=== PATIENT | male | born 1985 | race Caucasian/White ===

== ENCOUNTER → 2020-08-23 11:14 | Outpatient (BNVA) | payer OTHER, SELFPAY | PROVIDERS: PCP Internal Medicine; Visit Provider Surgery | DX: L02.811 Cutaneous abscess of head [any part, except face] (principal) | CPT/HCPCS: 10060; 99203 ==

== ENCOUNTER 2021-12-21 15:04 | Emergency (ER) | payer OTHER, SELFPAY ==
--- NOTE | ~2021-12-21 | XR_ITS ---
EXAMINATION: XR LUMBOSACRAL SPINE CLINICAL INFORMATION: Pain status post fall. COMPARISON: Radiographs of the lumbar spine dated from 10/03/2019. TECHNIQUE: Three views of the lumbosacral spine. FINDINGS: The vertebral bodies and posterior elements are normal. The disc spaces are preserved and the vertebral alignment is normal. The paraspinal soft tissues are normal. XR/XR lumbar spine 2-3V IMPRESSION: Unremarkable examination.
[2021-12-21 15:55] VITALS: PULSE 70; RESP 16; TEMP 36.6; O2SAT 100; BMI 26.5
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
[2021-12-21 17:09] VITALS: BP 124/57; PULSE 64; RESP 16; O2SAT 97
== END 2021-12-21 17:57 | disposition home or self-care (01) ==
PROVIDERS: Emergency Provider Emergency Medicine Emergency Medical Services; PCP Internal Medicine
DX: M54.50 Low back pain, unspecified (principal); Z79.899 Other long term (current) drug therapy
CPT/HCPCS: 72100; 99283; 99284

== ENCOUNTER 2023-11-26 08:02 | Outpatient (REF) | payer OTHER, SELFPAY ==
[2023-11-28 09:13] LABS: RPR Rapid Plasma Reagin NON-REACTIVE (NON-REACTIVE)
== END 2023-11-26 08:03 | disposition home or self-care (01) ==
LOC: HO.HHCL 08:02
PROVIDERS: Visit Provider Internal Medicine
DX: Z00.00 Encounter for general adult medical examination without abnormal findings (principal); R39.9 Unspecified symptoms and signs involving the genitourinary system
CPT/HCPCS: 0353U; 36415; 80048; 80061; 80076; 81003; 83036; 84153; 85025; 86592; 86803; 87086; 87389

== ENCOUNTER 2024-03-16 02:41 | Emergency (ER) | payer OTHER, SELFPAY ==
[2024-03-16 02:50] VITALS: BP 131/87; PULSE 98; RESP 16; TEMP 37.4; O2SAT 100; BMI 24.9
--- NOTE | 2024-03-16 03:14 | ED.GENADULT ---
HPI - General Adult General Chief complaint: General Medical Stated complaint: needs stitches removed Time Seen by Provider: 03/16/24 03:06 Source: patient Mode of arrival: ambulatory Limitations: no limitations History of Present Illness HPI narrative: Patient comes to the emergency room grossing stitches removal. Ten days ago he was in at [facility] for a laceration in the pinky finger on the left hand. Patient states that it has been healing well. No other complaints. Related Data Home Medications ?Medication ?Instructions ?Recorded ?Confirmed acetaminophen 500 mg tablet 500 mg PO Q6H PRN 08/23/20 (Tylenol Extra Strength) albuterol sulfate 90 mcg/actuation 1 puff inhalation QID 08/23/20 aerosol inhaler albuterol sulfate 90 mcg/actuation 1 puff inhalation QID 08/23/20 aerosol inhaler (ProAir HFA) buprenorphine 8 mg-naloxone 2 mg 2 film buccal DAILY 08/23/20 sublingual film (Suboxone) cyclobenzaprine 10 mg tablet 10 mg PO TID 08/23/20 diphenhydramine HCl 25 mg tablet 25 mg PO Q6H PRN 08/23/20 (Benadryl Allergy) docusate sodium 100 mg capsule 100 mg PO BID 08/23/20 (Colace) doxycycline hyclate 100 mg capsule 100 mg PO BID 08/23/20 fluticasone propionate 110 1 puff inhalation Q12H 08/23/20 mcg/actuation HFA aerosol inhaler (Flovent HFA) ibuprofen 800 mg tablet 800 mg PO TID 08/23/20 lidocaine 5 % topical patch 1 patch topical DAILY 08/23/20 loratadine 10 mg tablet (Allergy 10 mg PO DAILY 08/23/20 Relief (loratadine)) mirtazapine 15 mg tablet 15 mg PO BEDTIME 08/23/20 nabumetone 500 mg tablet 500 mg PO BID 08/23/20 nicotine (polacrilex) 4 mg gum 4 mg buccal Q1H 08/23/20 varenicline 0.5 mg (11)-1 mg (42) See Rx Instructions PO PER PKG DIR 08/23/20 tablets in a dose pack (Chantix Starting Month Box) amitriptyline 25 mg tablet 25 mg PO BEDTIME 10/02/22 cholecalciferol (vitamin D3) 50 50 mcg PO DAILY 10/02/22 mcg (2,000 unit) capsule (Vitamin D3) sertraline 100 mg tablet 100 mg PO DAILY 10/02/22 Previous Rx's ?Medication ?Instructions ?Recorded cyclobenzaprine 10 mg tablet 10 mg PO TID PRN muscle spasm #10 12/21/21 tabs ibuprofen 600 mg tablet 600 mg PO Q8H PRN pain #20 tabs 12/21/21 lidocaine 5 % topical patch 1 patch topical DAILY #15 ea 12/21/21 Allergies Allergy/AdvReac Type Severity Reaction Status Date / Time No Known Allergies Allergy Verified 03/16/24 02:51 Review of Systems Review of Systems: Constitutional : No Weight loss, No Fever, No Chills, No Night Sweats, No Fatigue, No Malaise ENT/Mouth : No Hearing loss, No Ear Pain, No Nasal Congestion, No Sinus Pain, No Hoarseness, No sore throat, No Rhinorrhea, No Swallowing Difficulty Eyes: No Eye Pain, No Swelling, No Redness, No Foreign Body, No Discharge, No Vision Changes Cardiovascular : No Chest Pain, No SOB, No Dyspnea on Exertion, No Orthopnea, No Edema, No Palpitations Respiratory : No Cough, No Sputum, No Wheezing, No Smoke Exposure, No Dyspnea Gastrointestinal : No Nausea, No Vomiting, No Diarrhea, No Constipation, No abdominal Pain, No Hematochezia, No Melena Genitourinary : no irregular bleeding, No Dysuria, No Urinary Frequency, No Hematuria, No Urinary Incontinence, No Urgency, No Flank Pain, No Urinary Flow Changes, No Hesitancy Musculoskeletal : No joint pain, No Myalgias, No Joint Swelling Skin : It stitches removed Neuro : No Weakness, No Numbness, No Paresthesias, No Loss of Consciousness, No Dizziness, No Headache Psych : No Anxiety/Panic, No Depression, No SI/HI/AH/VH, No Social Issues, Heme/Lymph: No Bruising, No Bleeding,No Lymphadenopathy Endocrine : No Polyuria, No Polydipsia, No Temperature Intolerance [facility] Past Medical History Surgical History History of removal of cyst Family History Family History Mother No problems noted. Father History of esophageal cancer Social History Social History Alcohol intake: never Do you have a plan to hurt others: No Plan Physical Exam ED Vital Signs: Vital Signs - 24 hr 03/16/24 02:50 Temperature 99.3 F Pulse Rate 98 Respiratory Rate 16 Blood Pressure 131/87 Pulse Oximetry 100 Oxygen Delivery Method Room Air BMI result Body Mass Index 24.9 Const Other: Appearance: Alert. Oriented X3. No acute distress. Eyes: Pupils equal, round and reactive to light. ENT: Pharynx normal. Neck: Normal inspection. Neck supple. No lymph nodes noted. No crepitus CVS: Normal heart rate and rhythm. Pulses normal. Normal S1 and S2 Respiratory: No respiratory distress. Breath sounds normal. No Wheezing. No rales Abdomen: Soft and nontender. No rigidity. No distention. Skin: Skin warm and dry. Normal skin color. Normal skin turgor. Well-healed incision in the palmar aspect of the left pinky, no signs of infection. Extremities: No lower extremity edema. No Lacerations. No Rash Neuro: Oriented X 3. No motor deficit. No sensory deficit. Moving all extremities. No slurred speech. CN 2 through 12 grossly intact Psych: calm, cooperative, normal affect Medical Decision Making Medical Decision Making MDM Narrative: All the suture material was removed. Discharge Plan Discharge Clinical Impression: Encounter for removal of sutures Patient Disposition: Home, Self-Care Instructions: Stitches Removal (ED) Additional Instructions: Please follow-up with your primary care physician tomorrow. If you have any worsening or new symptoms, please return to the emergency room or call 911 Prescriptions: No Action cyclobenzaprine 10 mg tablet 10 mg PO TID PRN (Reason: muscle spasm) Qty: 10 0RF ibuprofen 600 mg tablet 600 mg PO Q8H PRN (Reason: pain) Qty: 20 0RF lidocaine 5 % adhesive patch,medicated 1 patch topical DAILY Qty: 15 0RF Rx Instructions: leave on most painful area for up to 12 hrs mirtazapine 15 mg tablet 15 mg PO BEDTIME nicotine (polacrilex) 4 mg gum 4 mg buccal Q1H acetaminophen [Tylenol Extra Strength] 500 mg tablet 500 mg PO Q6H PRN lidocaine 5 % adhesive patch,medicated 1 patch topical DAILY Rx Instructions: leave on most painful area for up to 12 hrs albuterol sulfate 90 mcg/actuation HFA aerosol inhaler 1 puff inhalation QID albuterol sulfate [ProAir HFA] 90 mcg/actuation HFA aerosol inhaler 1 puff inhalation QID Chantix Starting Month Box 0.5 mg (11)- 1 mg (42) tablets,dose pack See Rx Instructions PO PER PKG DIR Rx Instructions: PO PER PKG DIR ibuprofen 800 mg tablet 800 mg PO TID diphenhydramine HCl [Benadryl Allergy] 25 mg tablet 25 mg PO Q6H PRN nabumetone 500 mg tablet 500 mg PO BID cyclobenzaprine 10 mg tablet 10 mg PO TID loratadine [Allergy Relief (loratadine)] 10 mg tablet 10 mg PO DAILY Flovent HFA 110 mcg/actuation HFA aerosol inhaler 1 puff inhalation Q12H docusate sodium [Colace] 100 mg capsule 100 mg PO BID buprenorphine-naloxone [Suboxone] 8-2 mg film 2 film buccal DAILY Rx Instructions: place 1 film on inside of (each) cheek doxycycline hyclate 100 mg capsule 100 mg PO BID amitriptyline 25 mg tablet 25 mg PO BEDTIME sertraline 100 mg tablet 100 mg PO DAILY cholecalciferol (vitamin D3) [Vitamin D3] 50 mcg (2,000 unit) capsule 50 mcg PO DAILY Print Language: Algerian
[2024-03-16 03:20] VITALS: BP 131/87; PULSE 98; RESP 16; TEMP 37.4; O2SAT 100
== END 2024-03-16 03:21 | disposition home or self-care (01) ==
LOC: HO.ED 03:19
PROVIDERS: Emergency Provider Emergency Medicine; PCP Internal Medicine
DX: S61.217D Laceration without foreign body of left little finger without damage to nail, subsequent encounter (principal); X58.XXXD Exposure to other specified factors, subsequent encounter
CPT/HCPCS: 99282; 99283

== ENCOUNTER 2025-04-11 13:29 | Emergency (ER) | payer MEDICARE, SELFPAY ==
--- NOTE | ~2025-04-11 | CT_ITS ---
CLINICAL HISTORY: perirectal abscess induration r o deeper tracking CT PELVIS WITH CONTRAST Comparison: None Findings: There is a wall enhancing thick-walled fluid collection in the right posterior perianal region with intergluteal extension. Suspected abscess measures 4.3 x 4.1 x 2.6 cm (Length x Height x Width). There is adjacent fat stranding and skin thickening. No deep or superficial gas locule. No foreign body. No pelvic free fluid or mesenteric edema. Multiple small reactive inguinal lymph nodes, right greater than left. No acute fracture or dislocation. IMPRESSION: Right inferior perirectal abscess measures 4.3 cm in greatest diameter. No significant extension into the ischioanal fossa or deep perineal pouch. This document has been electronically signed by: Maria Teresa Velasco DO on 04/11/2025 16:39:52
[2025-04-11 13:37] VITALS: BP 121/43; PULSE 99; RESP 16; TEMP 37.4; O2SAT 98; BMI 26.6
--- NOTE | 2025-04-11 13:37 | ED_ITS ---
HPI - General Adult General Chief complaint: Skin/Abscess/Foreign Body Stated complaint: cyst Time Seen by Provider: 04/11/25 14:27 Source: patient, RN notes reviewed and old records reviewed Mode of arrival: ambulatory History of Present Illness ED Provider: Nora Gtz PA-C HPI narrative: 39-year-old male with no significant past medical history presenting to the ED complaining of painful cyst to buttock area x1 week. Reports some drainage noted. Reports painful/difficulty having BMs. Denies fever, chills, nausea, vomiting, inability to have BM, difficulty urinating, abdominal pain Related Data Home Medications ?Medication ?Instructions ?Recorded ?Confirmed acetaminophen 500 mg tablet 500 mg PO Q6H PRN Mild Pain (Scale 08/23/20 04/11/25 (Tylenol Extra Strength) Score 1-4) albuterol sulfate 90 mcg/actuation 1 puff inhalation QID PRN 08/23/20 04/11/25 aerosol inhaler Respiratory Distress buprenorphine 8 mg-naloxone 2 mg 1 film sublingual TID 08/23/20 04/11/25 sublingual film (Suboxone) docusate sodium 100 mg capsule 100 mg PO BID PRN Constipation 08/23/20 04/11/25 (Colace) loratadine 10 mg tablet (Allergy 10 mg PO DAILY 08/23/20 Relief (loratadine)) mirtazapine 15 mg tablet 15 mg PO BEDTIME 08/23/20 nabumetone 500 mg tablet 500 mg PO BID 08/23/20 nicotine (polacrilex) 4 mg gum 4 mg buccal Q1H 08/23/20 varenicline tartrate 0.5 mg (11)-1 See Rx Instructions PO PER PKG DIR 08/23/20 mg (42) tablets in a dose pack (Chantix Starting Month Box) sertraline 100 mg tablet 100 mg PO DAILY 10/02/22 Previous Rx's ?Medication ?Instructions ?Recorded amoxicillin 875 mg-potassium 1 tab PO BID 7 days #14 tabs 04/11/25 clavulanate 125 mg tablet Allergies Allergy/AdvReac Type Severity Reaction Status Date / Time No Known Allergies Allergy Verified 04/11/25 13:38 Review of Systems 2 Review of Systems: Yes all other systems are reviewed and are negative Constitutional: Constitutional: Reports as per HPI [facility] Past Medical History Attestation statement: The following information was validated with the patient. Source: old records reviewed Surgical History History of removal of cyst Family History Family History Mother No problems noted. Father History of esophageal cancer Social History Social History Alcohol intake: never Smoked in Last 30 Days: Yes Use of substances other than those prescribed or required for medical reasons: No Advance Directives: No Advance Directives Information Provided: Yes Do you have a plan to hurt others: No Plan Physical Exam ED Vital Signs: Vital Signs - 24 hr 04/11/25 13:37 04/11/25 15:10 04/11/25 17:34 Temperature 99.4 F 99.9 F 98.2 F Pulse Rate 99 97 78 Respiratory Rate 16 16 Blood Pressure 121/43 L 128/92 H 136/79 Pulse Oximetry 98 98 99 Oxygen Delivery Method Room Air Room Air Room Air BMI result Body Mass Index 26.6 Const General: cooperative, healthy appearing and no acute distress Orientation/consciousness: patient oriented x3 Limitations: no limitations HENMT Head: Yes normal to inspection and Yes atraumatic Ears: hearing grossly normal bilaterally General nose exam: Normal external nose present Face and sinus: Yes normal facial exam Eyes General: appearance normal, both eyes and all related structures EOM: EOMs intact bilaterally Neck Neck: Yes normal visual inspection and Yes no meningeal signs Resp Effort & Inspection: normal respiratory effort and no respiratory distress Cardio Rate: regular rate GI Other: + large fluctuant and indurated abscess noted to right perianal region with surrounding erythema extending anteriorly. No appreciable scrotal involvement. Diffusely tender to palpation. No appreciable tracking into anal sphincter. Inspection: Yes normal to inspection Palpation (GI): Soft to palpation, nontender, no guarding and not rigid Neuro General: patient oriented x3, tone normal and no meningeal signs Cranial nerves: Yes CN's II-XII intact bilaterally Gait exam (Neuro): Normal gait present Extrem General: Yes normal to inspection Course Course Course Narrative: RME, this is a rapid medical exam performed by Qamar Traylor please refer to primary provider for complete H&P- 39 year old male presents for evaluation of a cyst to his right buttocks for about one week. No history of diabetes. - WBC count 11.2. ESR/ CRP elevated. Labs otherwise reassuring - lactic acid WNL CT pelvis w IV con IMPRESSION: Right inferior perirectal abscess measures 4.3 cm in greatest diameter. No significant extension into the ischioanal fossa or deep perineal pouch. >1648-- case discussed with general surgery, Dr. Burns who will review and evaluate patient in the ED >1733-- patient will be admitted to surgical service with plan OR I&D -1801-- patient now refusing admission. Will sign out AMA. Is A&O x3, competent to make his own decisions. Patient ate a bag of chips and thus cannot be taken for surgery until midnight (earliest), & is not agreeable to be admitted overnight for IV antibiotics and pain control. However patient is agreeable to return in the morning with plan to go to the OR. Will discharge with p.o. Augmentin. Medications Administered Discontinued Medications Generic Name Dose Route Start Last Admin Trade Name Freq PRN Reason Stop Dose Admin Sodium Chloride 1,000 mls @ 999 mls/hr 04/11/25 14:45 04/11/25 17:32 Ns IV 04/11/25 15:45 Infused .Q1H1M VINCE Infusion Piperacillin Sod/Tazobactam 100 mls @ 200 mls/hr 04/11/25 15:35 04/11/25 17:32 Sod 4.5 gm/ Sodium Chloride IV 04/11/25 16:04 Infused ONCE ONE Infusion Iohexol 85 ml 04/11/25 15:35 04/11/25 15:35 Iohexol 350 Mg/Ml 100 Ml Infus..Btl IV 04/11/25 15:36 85 ml ONCE ONE Administration Ketorolac Tromethamine 15 mg 04/11/25 15:39 04/11/25 15:47 Ketorolac Tromethamine 15 Mg/Ml Vial IVPUSH 04/11/25 15:40 15 mg ONCE ONE Administration Morphine Sulfate 4 mg 04/11/25 14:41 04/11/25 14:56 Morphine Sulfate 4 Mg/Ml Cartridge IVPUSH 04/11/25 14:42 4 mg ONCE ONE Administration Protocol Morphine Sulfate 2 mg 04/11/25 15:40 04/11/25 15:46 Morphine Sulfate 4 Mg/Ml Cartridge IVPUSH 04/11/25 15:41 2 mg ONCE ONE Administration Protocol Medical Decision Making Medical Decision Making MDM Narrative: 39-year-old male with no significant past medical history presenting to the ED complaining of painful cyst to buttock area x1 week. On exam vital signs stable, NAD, nontoxic appearing, physical exam as noted above. Concern for perianal abscess with deeper infection vs perianal involvement. Low suspicion for Eamon's gangrene at this time. Low suspicion for scrotal pathology including cellulitis/epididymitis orchitis or torsion. Low suspicion for intra- abdominal pathology or SBO/constipation Plan: Labs, UA, CT, IVF, pain control, surgical consult Please refer to course for remaining clinical decision making, interpretation of labs/imaging results, and discussions with consultants and/or family members. Differential Diagnosis Differential Diagnoses: The differential diagnosis associated with the presentation includes As above Admission/Observation Consideration of admission/observation: Escalation of care including admission/observation considered Lab Data [facility] Lab Attestation statement: I reviewed the patient's lab results. 04/11/25 14:49 04/11/25 14:49 Labs: Lab Results 04/11/25 04/11/25 Range/Units 14:49 15:33 WBC 11.2 H (4.8-10.8) X10*3/uL RBC 4.17 L (4.60-5.80) X10*6/uL Hgb 13.2 L (14.0-18.0) g/dl Hct 38.6 L (42.0-52.0) % MCV 92.6 (80.0-98.0) fL MCH 31.7 (27.0-33.0) pg MCHC 34.2 (31.0-36.0) g/dl RDW 12.8 (11.0-16.0) % Plt Count 298 (160-400) X10*3/uL MPV 10.5 (9.4-12.4) fL Immature Gran % (Auto) 0.4 (0.0-0.4) % Neut % (Auto) 76.2 H (45-73) % Lymph % (Auto) 14.9 L (20-40) % [place]hin % (Auto) 6.1 (2-11) % Eos % (Auto) 2.0 (0-4) % Baso % (Auto) 0.4 (0-2) % Lymph # (Auto) 1.7 (1.2-4.9) X10*3/uL [place]hin # (Auto) 0.7 (0.1-1.2) X10*3/uL Eos # (Auto) 0.2 (0.0-0.4) X10*3/uL Baso # (Auto) 0.1 (0.0-0.2) X10*3/uL Abs Immat Gran (auto) 0.05 H (0.00-0.03) X10*3/uL Absolute Neuts (auto) 8.5 H (2.0-8.3) x10*3/uL Absolute Nucleated RBC 0.000 (0.0-0.012) X10*3/uL Nucleated RBC % (auto) 0.0 (0.0-0.2) /100WBC ESR 62 H (0-15) MM/HR PT 11.0 (10.9-12.4) SEC INR 1.0 (0.9-1.1) Sodium 141 (135-145) mmol/L Potassium 4.5 (3.3-5.1) mmol/L Chloride 102 (96-108) mmol/L Carbon Dioxide 28 (22-29) mmol/L Anion Gap 16 (12-20) BUN 10 (9-16) mg/dL Creatinine 0.67 (0.5-1.4) mg/dL Estim Creat Clear Calc 119.1 Estimated GFR > 60 Random Glucose 113 (60-115) mg/dL Lactic Acid 1.8 (0.5-2.0) mmol/L Calcium 9.6 (8.4-10.2) mg/dL Magnesium 1.9 (1.6-2.6) mg/dL Total Bilirubin 0.2 (0.0-1.0) mg/dL Direct Bilirubin < 0.2 (0.0-0.5) mg/dL AST 16 (5-37) U/L ALT 10 (0-40) U/L Alkaline Phosphatase 71 (39-117) U/L C-Reactive Protein 6.80 H (< or = 0.50) mg/dL Total Protein 7.6 (6.5-8.0) g/dL Albumin 4.3 (3.5-5.0) g/dL Independent Interpretation I performed an independent interpretation of an: CT Scan Radiology Impression Discussion of test interpretation with radiology: I have reviewed the radiologist's reading. External Record Review External record reviewed: Inpatient record, Office record, Outpatient record, Prior outpatient labs, Prior outpatient radiology, Primary care record and Outside ED record Tests considered The following testing was considered but not selected: As above Prescription Management I considered prescription management with: Pain Medication and Antibiotic Chronic Conditions Patient?s care impacted by: Other Social Determinants Patient?s care significantly limited by Social Determinants of Health including: Other Social Determinant of Health Critical Care Time Critical Care Time Critical Care Time: Yes Total Critical Care Time: 40 Attestation: I have personally provided critical care time exclusive of time spent on separately billable procedures. Time includes review of lab data, radiology results, discussion with consultants, and monitoring for potential decompensation. Intervention performed as documented. Discharge Plan Discharge Clinical Impression: Perirectal abscess Patient Disposition: Left Against Medical Advice Instructions: Rectal Abscess (ED) Additional Instructions: Augmentin was sent to your pharmacy, please take a dose tonight and an additional dose in the morning You are signing out against medical advice. PLEASE RETURN TO THE ED IN THE MORNING AROUND 09:00 AND WE WILL PLAN FOR SURGICAL DRAINAGE OF YOUR ABSCESS if her pain persists/ worsens, becomes unbearable, you have fevers, chills, abdominal pain return to the ED DO NOT EAT OR DRINK ANYTHING AFTER MIDNIGHT TONIGHT Prescriptions: New amoxicillin-pot clavulanate 875-125 mg tablet 1 tab PO BID 7 Days Qty: 14 0RF No Action mirtazapine 15 mg tablet 15 mg PO BEDTIME nicotine (polacrilex) 4 mg gum 4 mg buccal Q1H acetaminophen [Tylenol Extra Strength] 500 mg tablet 500 mg PO Q6H PRN (Reason: Mild Pain (Scale Score 1-4)) lidocaine 5 % adhesive patch,medicated 1 patch topical DAILY Rx Instructions: leave on most painful area for up to 12 hrs albuterol sulfate 90 mcg/actuation HFA aerosol inhaler 1 puff inhalation QID PRN (Reason: Respiratory Distress) Chantix Starting Month Box 0.5 mg (11)- 1 mg (42) tablets,dose pack See Rx Instructions PO PER PKG DIR Rx Instructions: PO PER PKG DIR nabumetone 500 mg tablet 500 mg PO BID loratadine [Allergy Relief (loratadine)] 10 mg tablet 10 mg PO DAILY docusate sodium [Colace] 100 mg capsule 100 mg PO BID PRN (Reason: Constipation) buprenorphine-naloxone [Suboxone] 8-2 mg film 1 film sublingual TID sertraline 100 mg tablet 100 mg PO DAILY Ref[place]: [facility] [place] Group] - 1 day Jung Vazquez DO [Emergency Provider] - 1 day Stand Alone Forms: Against Medical Advice Print Language: Wolof
[2025-04-11] MEDS: Morphine Sulfate 4 MG/ML CARTRIDGE IVPUSH (14:56)
[2025-04-11] MEDS: 0.9 % Sodium Chloride 1,000 ML 999 ML IV (14:57)
[2025-04-11 14:59] LABS: MANUAL DIFF FLAG NO
[2025-04-11 15:03] LABS: Basophils Absolute Auto 0.1 X10*3/uL (0.0-0.2); Basophils Percent Auto 0.4 % (0-2); Eosinophils Absolute Auto 0.2 X10*3/uL (0.0-0.4); Hematocrit 38.6 % (42.0-52.0); Hemoglobin 13.2 g/dl (14.0-18.0); Imm Gran Abs Auto 0.05 X10*3/uL (0.00-0.03); Imm Gran Pct Auto 0.4 % (0.0-0.4); Lymphocytes Absolute Auto 1.7 X10*3/uL (1.2-4.9); Lymphocytes Percent Auto 14.9 % (20-40); Mean Corpuscular HGB Conc 34.2 g/dl (31.0-36.0); Mean Corpuscular Hemoglobin 31.7 pg (27.0-33.0); Mean Corpuscular Volume 92.6 fL (80.0-98.0); Mean Platelet Volume 10.5 fL (9.4-12.4); Monocytes Absolute Auto 0.7 X10*3/uL (0.1-1.2); Monocytes Percent Auto 6.1 % (2-11); Neutrophils Absolute Auto 8.5 x10*3/uL (2.0-8.3); Neutrophils Percent Auto 76.2 % (45-73); Platelet Count 298 X10*3/uL (160-400); Red Blood Count 4.17 X10*6/uL (4.60-5.80); Red Cell Distribution Width 12.8 % (11.0-16.0); White Blood Count 11.2 X10*3/uL (4.8-10.8)
[2025-04-11 15:10] VITALS: BP 128/92; PULSE 97; RESP 16; TEMP 37.7; O2SAT 98
[2025-04-11 15:14] LABS: Alanine Aminotransferase 10 U/L (0-40); Albumin Level 4.3 g/dL (3.5-5.0); Alkaline Phosphatase 71 U/L (39-117); Anion Gap 16 (12-20); Aspartate Amino Transferase 16 U/L (5-37); Bilirubin Direct < 0.2 mg/dL (0.0-0.5); Bilirubin Total 0.2 mg/dL (0.0-1.0); Blood Urea Nitrogen 10 mg/dL (9-16); Calcium 9.6 mg/dL (8.4-10.2); Carbon Dioxide 28 mmol/L (22-29); Chloride 102 mmol/L (96-108); Creatinine Clr Calc Pharmacy 119.1; Estimated Glomerular Filt Rate > 60; Glucose Random 113 mg/dL (60-115); Magnesium 1.9 mg/dL (1.6-2.6); Potassium 4.5 mmol/L (3.3-5.1); Sodium 141 mmol/L (135-145); Total Protein 7.6 g/dL (6.5-8.0)
--- OUTSIDE RECORDS SUMMARY | 2025-04-11 15:14 | XMS_ITS | Encounter Summary ---
Author Organization [employer] Address [address] [place] [address] Care Team Providers [facility] Manager Name Role Phone Marysol Patterson MD Primary Care Provide r Encounter Details Date Type Department Care Team (Latest Contact Info) Description 04/08/2025 Travel Social History Tobacco Use Types Packs/Day Years Used Date Smoking Tobacco: Every Day Cigarettes Smokeless Tobacco: Never Alcohol Use Standard Drinks/Week Comments Not Currently 0 (1 standard drink = 0.6 oz pur e alcohol) Depression Answer Date Recorded Patient Health Questionnaire-9 Score 6 11/07/2023 Patient Health Questionnaire-9 Score 6 11/07/2023 Last PHQ-9: Questionnaire Data Not on file 1 01/08/2023 Housing Stability Answer Date Recorded What is your housing situation today? I have p[place]co[place] warren 11/07/[address] you li ve. Do you have problems with any of the following? None of the above 11/07/2023 Food Insecurity Answer Date Recorded Within the past 12 months, y ou worried that your food would run out before you got money to buy more: Never True 11/07/2023 Within the past 12 months,th e food you bought just didn't last and you didn't have enough money to get more: Never True Transportation Answer Date Recorded In the past 12 months, has l ack of transportation kept you from medical appts, meetings, work or from getting things needed for daily living? No 11/07/2023 Utilities Answer Date Recorded In the past 12 months, has t he electric, gas, oil or water company threatened to shut off services in your home? No 11/07/2023 Depression Answer Date Recorded Patient Health Questionnaire-2 Score 3 11/07/2023 Internet Access Answer Date Recorded Internet Access Q1 Yes 10/30/2024 Internet Access Q2 Not on file 10/30/2024 Sex and Gender Information Value Date Recorded Sex Assigned at Male 09/18/2022 10:16 AM EDT Legal Sex Male 10:16 AM EDT Gender Identity Male 09/18/2022 10:16 AM EDT Sexual Orientation Straight 09/18/2022 10 :16 AM EDT documented as of this encounter Plan of Treatment Upcoming Encounters Date Type Department Care Team (Late st Contact Info) Description 05/05/2025 1:00 PM EDT Office Visit [facility] [address] [place] [id number] James Marte MD [address] [place] [id number] documented as of this encounter Visit Diagnoses Not on filedocumented in this encounter Additional Health Concerns Assessment Noted Time PHQ-9 Depression Total Score: 6 11/07/20 23 9:36 AM EST documented as of this encounter Care Teams Medical Center Manager Relationship Specialty Start Date End Date Marysol Patterson MD [address] [place] [id number] PCP - General Family Medicine 08/07/18 documented as of this encounter
[2025-04-11] MEDS: iohexoL 350 MG/ML 100 ML INFUS..BTL 85 ML IV (15:35)
[2025-04-11] MEDS: Morphine Sulfate 4 MG/ML CARTRIDGE 2 MG IVPUSH (15:46)
[2025-04-11] MEDS: Ketorolac Tromethamine 15 MG/ML VIAL IVPUSH (15:47)
[2025-04-11] MEDS: Piperacillin Sodium/Tazobactam 4.5 GM in 0.9 % Sodium Chloride 100 ML IV (15:47)
[2025-04-11 15:50] LABS: Erythrocyte Sedimentation Rate 62 MM/HR (0-15)
[2025-04-11 15:54] LABS: Lactic Acid 1.8 mmol/L (0.5-2.0)
[2025-04-11 17:34] VITALS: BP 136/79; PULSE 78; TEMP 36.8; O2SAT 99
--- NOTE | 2025-04-11 17:37 | PC.NURSE ---
This RN entered pt's room to reassess and noted that pt was eating a bag of potato chips; pt reminded that he needs to be NPO pending surgical consult; provider made aware
[2025-04-11 18:00] VITALS: BP 106/36; PULSE 63; RESP 13; TEMP 36.7; O2SAT 96
--- NOTE | 2025-04-11 18:11 | PHA.MEDREC ---
Pharmacy Consult ? Medication Reconciliation Pharmacy has completed the medication reconciliation.Med rec complete, spoke with patient and compared pharmacy claim history
[2025-04-11 18:23] VITALS: BP 106/36; PULSE 63; RESP 13; TEMP 36.7; O2SAT 96
== END 2025-04-11 18:25 | disposition left against medical advice (07) ==
PROVIDERS: Physician Assistant; Emergency Provider Emergency Medicine; PCP Internal Medicine
DX: K61.1 Rectal abscess (principal); Z79.899 Other long term (current) drug therapy
CPT/HCPCS: 36415; 72193; 80048; 80076; 83605; 83735; 85025; 85610; 85652; 86140; 87040; 87070; 87147; 87205; 99284; J1885; J2270; J2543; Q9967

== ENCOUNTER → 2025-04-11 14:41 | Outpatient (BNV) | payer SELFPAY | PROVIDERS: Emergency Provider Emergency Medicine; PCP Internal Medicine; Visit Provider Radiology Diagnostic Radiology | DX: K61.1 Rectal abscess (principal) | CPT/HCPCS: 72193 ==

== ENCOUNTER 2025-04-12 11:08 | Inpatient (IN) | payer MEDICARE, SELFPAY ==
[2025-04-12] VITALS (10 sets, daily range): BP systolic 107–135; BP diastolic 50–75; PULSE 64–85; RESP 16–18; TEMP 36.5–37.2; O2SAT 94–100; BMI 27.9; BMI 29.1
--- NOTE | 2025-04-12 11:42 | ED_ITS ---
HPI - General Adult General Chief complaint: Skin/Abscess/Foreign Body Stated complaint: cyst Time Seen by Provider: 04/12/25 12:04 Source: patient, RN notes reviewed and old records reviewed History of Present Illness ED Provider: Nora Gtz PA-C HPI narrative: 39-year-old male with past medical history right perirectal abscess diagnosed in our ED yesterday, presenting back to the ED today for OR I&D. Patient was seen in treated yesterday due to buttock pain x1 week, had CT confirming 4.3 cm perirectal abscess, general surgery evaluated patient in the ED and recommended OR drainage however patient is signed out AMA. Patient reports continued pain and some drainage. Has been NPO since midnight. Denies fever, abdominal pain, nausea/vomiting. Related Data Home Medications ?Medication ?Instructions ?Recorded ?Confirmed acetaminophen 500 mg tablet 500 mg PO Q6H PRN Mild Pain (Scale 08/23/20 04/12/25 (Tylenol Extra Strength) Score 1-4) albuterol sulfate 90 mcg/actuation 1 puff inhalation QID PRN 08/23/20 04/12/25 aerosol inhaler Respiratory Distress buprenorphine 8 mg-naloxone 2 mg 1 film sublingual TID 08/23/20 04/12/25 sublingual film (Suboxone) docusate sodium 100 mg capsule 100 mg PO BID PRN Constipation 08/23/20 04/12/25 (Colace) Previous Rx's ?Medication ?Instructions ?Recorded amoxicillin 875 mg-potassium 1 tab PO BID 7 days #14 tabs 04/11/25 clavulanate 125 mg tablet docusate sodium 100 mg capsule 100 mg PO BID #30 caps 04/14/25 (Colace) ibuprofen 600 mg tablet 600 mg PO Q8H PRN pain #30 tabs 04/14/25 oxycodone 5 mg tablet 5 mg PO Q4H PRN pain (scale score 04/14/25 7-10) #14 tabs Allergies Allergy/AdvReac Type Severity Reaction Status Date / Time No Known Allergies Allergy Verified 04/12/25 11:44 Review of Systems Review of Systems: Yes all other systems are reviewed and are negative Constitutional: Constitutional: Reports as per [facility] Past Medical History Attestation statement: The following information was validated with the patient. Source: old records reviewed Surgical History History of removal of cyst Family History Family History Mother No problems noted. Father History of esophageal cancer Social History Social History Household Members: Spouse Housing: Apartment Do you presently have visiting nurse or other home services: No Alcohol intake: never Patient Tobacco Use Status: Current everyday Tobacco user Cigarettes Per Day: 20 Smoked in Last 30 Days: Yes Patient Interested in Nicotine Replacement: Yes Use of substances other than those prescribed or required for medical reasons: Yes Substance Use Type: Marijuana Substance Use Frequency: Occasionally Currently Displaying Signs/Symptoms of Drug Intoxication Withdrawal: No Do you feel safe in your current relationship?: Yes Advance Directives: No Advance Directives Information Provided: Yes Do you have a plan to hurt others: No Plan service: No Physical Exam ED Vital Signs: Vital Signs - 24 hr 04/12/25 11:42 04/12/25 12:46 04/12/25 12:51 Temperature 97.7 F Pulse Rate 85 75 Respiratory Rate 16 16 Blood Pressure 120/56 L 109/50 L 107/52 L Pulse Oximetry 98 98 Oxygen Delivery Method Room Air Room Air 04/12/25 12:59 Temperature Pulse Rate 65 Respiratory Rate 18 Blood Pressure Pulse Oximetry 95 Oxygen Delivery Method BMI result Body Mass Index 27.9 Const General: cooperative, healthy appearing and no acute distress Orientation/consciousness: patient oriented x3 Limitations: no limitations HENMT Head: Yes normal to inspection and Yes atraumatic Ears: hearing grossly normal bilaterally General nose exam: Normal external nose present Face and sinus: Yes normal facial exam Eyes General: appearance normal, both eyes and all related structures EOM: EOMs intact bilaterally Neck Neck: Yes normal visual inspection and Yes no meningeal signs Resp Effort & Inspection: normal respiratory effort and no respiratory distress Cardio Rate: regular rate GI Inspection: Yes normal to inspection Palpation (GI): Soft to palpation and nontender Rectal Exam - Male: Yes deferred Neuro General: patient oriented x3, tone normal and no meningeal signs Cranial nerves: Yes CN's II-XII intact bilaterally Gait exam (Neuro): Normal gait present Extrem General: Yes normal to inspection Course Course Course Narrative: This is an RME performed by Alicia Gamboa CNP: Additional HPI, ROS, PE not included below will be deferred to primary provider. Patient is a 39-year-old male who presents emergency department for evaluation, reports that he has a cyst to the right buttock. States that he was seen here yesterday for this, was advised to return today as he would require surgery for this. Onset of cyst was approximately 4-5 days ago, states it is actively draining. Patient was offered admission to surgical service with plan for OR incision and drainage of perirectal abscess however he declined admission and left against medical advice, he was also offered admission to hospital for IV antibiotics and pain control with plan for OR, this morning, and he additionally declined. Plan: Serum labs Medications Administered Generic Name Dose Route Start Last Admin Trade Name Freq PRN Reason Stop Dose Admin Docusate Sodium 100 mg 04/12/25 15:42 04/13/25 15:21 Docusate Sodium 100 Mg Capsule PO 100 mg BID PRN Administration Constipation Sodium Chloride 1,000 mls @ 100 mls/hr 04/12/25 12:30 04/14/25 09:14 Ns IVCONT 100 mls/hr .Q10H VINCE Administration Piperacillin Sod/Tazobactam 50 mls @ 100 mls/hr 04/12/25 15:45 04/14/25 10:08 Sod 3.375 gm/ Sodium Chloride IV Infused Q6H VINCE Infusion Ketorolac Tromethamine 15 mg 04/12/25 21:00 04/14/25 08:34 Ketorolac Tromethamine 15 Mg/Ml Vial IVPUSH 15 mg Q6H VINCE Administration Lidocaine 1 patch 04/14/25 09:30 04/14/25 09:37 Lidocaine 4 % Patch Adh..Patch TRANSDERMA 1 patch DAILY VINCE Administration Protocol Lorazepam 1 mg 04/12/25 16:14 04/14/25 08:35 Lorazepam 1 Mg Tablet PO 1 mg Q6H PRN Administration Anxiety Morphine Sulfate 3 mg 04/12/25 18:07 04/14/25 09:40 Morphine Sulfate 4 Mg/Ml Cartridge IVPUSH 3 mg Q4H PRN Administration Pain, Severe (Pain Scale 7-10) Protocol Nicotine 21 mg 04/12/25 16:14 04/14/25 08:36 Nicotine 21 Mg Patch.Td24 TRANSDERMA 21 mg DAILY VINCE Administration Oxycodone HCl 10 mg 04/12/25 15:38 04/14/25 08:33 Oxycodone Hcl Immed Release 5 Mg Tablet PO 10 mg Q4H PRN Administration Pain, Moderate(Pain Scale 4-6) Sodium Chloride 3 ml 04/12/25 16:00 04/14/25 08:38 0.9 % Sodium Chloride Flush 3 Ml Syringe IVFLUSH 3 ml QSHIFT VINCE Administration Discontinued Medications Generic Name Dose Route Start Last Admin Trade Name Roland PRN Reason Stop Dose Admin Fentanyl 50 mcg 04/12/25 12:24 04/12/25 12:59 Fentanyl Citrate/Pf 100 Mcg/2 Ml Vial IVPUSH 04/12/25 12:25 50 mcg ONCE ONE Administration Protocol Ketorolac Tromethamine 15 mg 04/12/25 14:23 04/12/25 14:31 Ketorolac Tromethamine 15 Mg/Ml Vial IVPUSH 04/12/25 14:24 15 mg ONCE ONE Administration Morphine Sulfate 2 mg 04/12/25 14:23 04/12/25 14:31 Morphine Sulfate 2 Mg/Ml Cartridge IVPUSH 04/12/25 14:24 2 mg ONCE ONE Administration Protocol Medical Decision Making Medical Decision Making [facility] Narrative: 39-year-old male with past medical history right perirectal abscess diagnosed in our ED yesterday, presenting back to the ED today for OR I&D. On exam vital signs stable, NAD, nontoxic appearing, plan for OR I&D. General surgery, Dr. Burns notified of patient's ED arrival. No additional labs or imaging needed at this time. Plan: Maintenance IVF, pain control, surgery Please refer to course for remaining clinical decision making, interpretation of labs/imaging results, and discussions with consultants and/or family members. Differential Diagnosis Differential Diagnoses: The differential diagnosis associated with the presentation includes As above Admission/Observation Consideration of admission/observation: Escalation of care including adm ission/observation considered Consult Healthcare Provider Management of the patient was discussed with: Doctor Of Chiropractic (general surgery) Lab Data [facility] Lab Attestation statement: I reviewed the patient's lab results. Radiology Impression Discussion of test interpretation with radiology: I have reviewed the radiologist's reading. Independent Historian Clinical information obtained from an independent historian. History obtained from or confirmed by: Spouse External Record Review External record reviewed: Inpatient record, Office record, Outpatient record, Prior outpatient labs, Prior outpatient radiology, Primary care record and Outside ED record Tests considered The following testing was considered but not selected: As above Prescription Management I considered prescription management with: Pain Medication and Antibiotic Chronic Conditions Patient?s care impacted by: Other Social Determinants Patient?s care significantly limited by Social Determinants of Health including: Other Social Determinant of Health Discharge Plan Discharge Clinical Impression: Perirectal abscess Patient Disposition: Xfer Other Transfer Details: OR Interventions: Admission Worksheet (ED) Last Done: 04/12/25 15:09 Discharge Date/Time: 04/12/25 15:10
[2025-04-12] MEDS: 0.9 % Sodium Chloride 1,000 ML 100 ML IVCONT ×2 (12:45→16:33)
[2025-04-12] MEDS: fentaNYL citrate/PF 100 MCG/2 ML VIAL 50 MCG IVPUSH (12:59)
[2025-04-12] MEDS: Morphine Sulfate 2 MG/ML CARTRIDGE IVPUSH (14:31)
[2025-04-12] MEDS: Ketorolac Tromethamine 15 MG/ML VIAL IVPUSH ×2 (14:31→21:15)
--- NOTE | 2025-04-12 15:00 | PM.HPGS ---
History of Present Illness History of Present Illness Date of Service: 04/12/25 Chief complaint: cyst Narrative: Tc Man is a 39 year old male with a right perirectal abscess who came into the emergency room yesterday but left AMA since we can only do his case around midnight because he had eaten while he was NPO in the emergency room. Review of Systems Review of Systems: Yes all other systems are reviewed and are negative PMFSH Family History Family History Mother No problems noted. Father History of esophageal cancer Surgical History Surgical History History of removal of cyst Social History Social History Alcohol intake: never Smoked in Last 30 Days: Yes Use of substances other than those prescribed or required for medical reasons: Yes Substance Use Type: Marijuana Substance Use Frequency: Occasionally Advance Directives: No Advance Directives Information Provided: Yes Do you have a plan to hurt others: No Plan Meds Allergies Allergy/AdvReac Type Severity Reaction Status Date / Time No Known Allergies Allergy Verified 04/12/25 11:44 Active Medications: Current Medications Acetaminophen (Acetaminophen 325 Mg Tablet) 650 mg PO Q6H PRN PRN Reason: Pain, Mild 1-3,fever,headache Calcium Carbonate (Calcium Carbonate 750 Mg Tab.Chew) 750 mg PO Q4H PRN PRN Reason: Heartburn Sodium Chloride (Ns) 1,000 mls @ 100 mls/hr IVCONT .Q10H ON LICENSE OF [facility] Last Admin: 04/12/25 12:45 Dose: 100 mls/hr Magnesium Hydroxide (Milk Of Magnesia 30 Ml Oral.Susp) 30 ml PO DAILY PRN PRN Reason: Constipation Melatonin (Melatonin 3 Mg Tablet) 6 mg PO BEDTIME PRN PRN Reason: Insomnia Sodium Chloride (0.9 % Sodium Chloride Flush 3 Ml Syringe) 3 ml IVFLUSH QSHIFT ON LICENSE OF [facility] Home Medications ?Medication ?Instructions ?Recorded ?Confirmed ?Last Taken ?Type acetaminophen 500 mg tablet 500 mg PO Q6H PRN Mild Pain (Scale 08/23/20 04/11/25 Unknown History (Tylenol Extra Strength) Score 1-4) albuterol sulfate 90 mcg/actuation 1 puff inhalation QID PRN 08/23/20 04/11/25 Unknown History aerosol inhaler Respiratory Distress buprenorphine 8 mg-naloxone 2 mg 1 film sublingual TID 08/23/20 04/11/25 04/11/25 History sublingual film (Suboxone) docusate sodium 100 mg capsule 100 mg PO BID PRN Constipation 08/23/20 04/11/25 Unknown History (Colace) Physical Exam Vital Signs: Vital Signs: Last Vital Signs Temp 97.7 F 04/12/25 11:42 Pulse 65 04/12/25 12:59 Resp 18 04/12/25 12:59 BP 107/52 L 04/12/25 12:51 Pulse Ox 95 04/12/25 12:59 O2 Del Method Room Air 04/12/25 12:46 BMI result Body Mass Index 27.9 Resp: Effort & Inspection: normal respiratory effort Auscultation: clear to auscultation bilaterally Cardio: Palpation: normal PMI Rate: regular rate Rhythm: regular rhythm GI: Other: Abdomen benign Skin: Other: Large right-sided buttock perirectal abscess with significant induration erythema and tenderness small opening draining some purulent material Results Results CT scan - pelvis: report reviewed and image reviewed Assessment and Plan (1) Perirectal abscess: Status: Acute Plan 39-year-old male with perirectal abscess plan is do incision and drainage culture packing IV antibiotics. He understands and agrees with the above plan risks and benefits discussed with the patient Quality Stroke Does the patient have a stroke diagnosis?: No VTE Prior VTE?: No VTE Risk Level:: Surgical - low VTE Device Contraindication: N/A - Device Ordered VTE Drug Contraindication: Treatment Not Indicated Procedures Date of Service Date of Service: 04/12/25
--- NOTE | 2025-04-12 15:44 | P.OP_ITS ---
Operative Note Operative Note Date of Service: 04/12/25 Narrative: Preop diagnosis--right perirectal abscess Postop diagnosis--same Procedure--incision and drainage of right perirectal abscess Surgeon--Katy Anesthesia--general with an LMA Findings--right perirectal abscess with some purulent material but a lot of indurated soft fatty tissue deep. No communication with the anorectal opening Procedure--the patient was brought to the operative room and placed in the left lateral decubitus position with the buttocks taped upwards. The right buttock cheek near the perianal area was noted to be very erythematous and firm for about 8 x 12 cm. There was a small area that was already draining some purulent material. The area was prepped and draped in standard surgical fashion with Betadine. Scalpel was used to open up the area that was already draining and purulent material rushed out. This area was cultured and sent off for microbiology. Then using the cautery an area here was opened up and eventually the skin and soft tissue removed to make more of an elliptical opening to allow for free drainage of the purulent material and to be able to palpate the indurated tissue that was deep. A snap was placed into this deeper tissue and spread in order to dissect through it but there was no further purulent material retrieved. A 2nd area that felt little fluctuant closer to the anterior perineum was opened up with a scalpel and cautery and once again no purulent mat erial was noted here but the tissue was indurated. The area was irrigated hemostasis was achieved with a little cautery. Quarter-inch packing gauze was placed into both wounds and dry gauze and mesh panties were used to keep the dressing in place. At the end of the case all sponge instrument needle counts were correct. Estimated blood loss was about 15 cc. Specimens sent was the cultures for the perirectal abscess. Rectal exam of the end did not reveal any communication between the abscess and the anorectal mucosa. Patient was sent to the recovery room stable
--- NOTE | 2025-04-12 15:46 | PHA.MEDREC ---
Pharmacy Consult ? Medication Reconciliation Pharmacy has completed the medication reconciliation. Med rec done yesterday 04/11.
--- NOTE | 2025-04-12 15:50 | P.CONAN_ITS ---
[facility] Active Problems Active Problems: All Active Problems Perirectal abscess (Acute) Abscess, postauricular (Acute) Smoker in home (Acute) Past Medical History Functional capacity: independent ambulation Family History Family History Mother No problems noted. Father History of esophageal cancer Family history of problems with anesthesia: No Surgical History Surgical History History of removal of cyst History of Problems with Anesthesia: No Social History Social History Alcohol intake: never Smoked in Last 30 Days: Yes Use of substances other than those prescribed or required for medical reasons: Yes Substance Use Type: Marijuana Substance Use Frequency: Occasionally Advance Directives: No Advance Directives Information Provided: Yes Do you have a plan to hurt others: No Plan Meds Allergies Allergy/AdvReac Type Severity Reaction Status Date / Time No Known Allergies Allergy Verified 04/12/25 11:44 Active Medications: Current Medications Acetaminophen (Acetaminophen 325 Mg Tablet) 650 mg PO Q6H PRN PRN Reason: Pain, Mild 1-3,fever,headache Albuterol Sulfate (Albuterol Sulfate 90 Mcg 8 Gm Inhaler) 1 puff INHALE RQ6H PRN PRN Reason: Shortness of Breath Calcium Carbonate (Calcium Carbonate 750 Mg Tab.Chew) 750 mg PO Q4H PRN PRN Reason: Heartburn Docusate Sodium (Docusate Sodium 100 Mg Capsule) 100 mg PO BID PRN PRN Reason: Constipation Fentanyl (Fentanyl Citrate/Pf 100 Mcg/2 Ml Vial) 50 mcg IVPUSH Q5M PRN PRN Reason: Pain, Moderate to Severe (Pain Scale 4-10) Stop: 04/12/25 21:44 Fentanyl (Fentanyl Citrate/Pf 100 Mcg/2 Ml Vial) 50 mcg IVPUSH Q5M PRN PRN Reason: Pain, Moderate to Severe (Pain Scale 4-10) Stop: 04/12/25 21:48 Sodium Chloride (Ns) 1,000 mls @ 100 mls/hr IVCONT .Q10H VINCE Last Admin: 04/12/25 12:45 Dose: 100 mls/hr Piperacillin Sod/Tazobactam (Sod 3.375 gm/ Sodium Chloride) 50 mls @ 100 mls/hr IV Q6H [facility] Ketorolac Tromethamine (Ketorolac Tromethamine 15 Mg/Ml Vial) 15 mg IVPUSH Q6H PRN PRN Reason: Pain, Severe (Pain Scale 7-10) Magnesium Hydroxide (Milk Of Magnesia 30 Ml Oral.Susp) 30 ml PO DAILY PRN PRN Reason: Constipation Melatonin (Melatonin 3 Mg Tablet) 6 mg PO BEDTIME PRN PRN Reason: Insomnia Naloxone HCl (Naloxone Hcl 0.4 Mg/Ml Vial) 0.04 mg IVPUSH Q5M PRN PRN Reason: Excessive sedation or RR < 8 Naloxone HCl (Naloxone Hcl 0.4 Mg/Ml Vial) 0.04 mg IVPUSH Q5M PRN PRN Reason: Excessive sedation or RR < 8 Ondansetron HCl (Ondansetron Hcl 4 Mg/2 Ml Vial) 4 mg IVPUSH ONCE PRN PRN Reason: Nausea and Vomiting Stop: 04/12/25 21:45 Ondansetron HCl (Ondansetron Hcl 4 Mg/2 Ml Vial) 4 mg IVPUSH ONCE PRN PRN Reason: Nausea and Vomiting Stop: 04/12/25 21:48 Oxycodone HCl (Oxycodone Hcl Immed Release 5 Mg Tablet) 5 mg PO Q4H PRN PRN Reason: Pain, Mild 1-3,fever,headache Oxycodone HCl (Oxycodone Hcl Immed Release 5 Mg Tablet) 10 mg PO Q4H PRN PRN Reason: Pain, Moderate(Pain Scale 4-6) Sodium Chloride (0.9 % Sodium Chloride Flush 3 Ml Syringe) 3 ml IVFLUSH QSHIFT [facility] Home Medications ?Medication ?Instructions ?Recorded ?Confirmed ?Last Taken ?Type acetaminophen 500 mg tablet 500 mg PO Q6H PRN Mild Pain (Scale 08/23/20 04/12/25 Unknown History (Tylenol Extra Strength) Score 1-4) albuterol sulfate 90 mcg/actuation 1 puff inhalation QID PRN 08/23/20 04/12/25 Unknown History aerosol inhaler Respiratory Distress buprenorphine 8 mg-naloxone 2 mg 1 film sublingual TID 08/23/20 04/12/25 04/11/25 History sublingual film (Suboxone) docusate sodium 100 mg capsule 100 mg PO BID PRN Constipation 08/23/20 04/12/25 Unknown History (Colace) Exam Height,Weight and Vital Signs: Height 5 ft 3 in Weight 71.4 kg Last Vital Signs Temp 97.7 F 04/12/25 11:42 Pulse 65 04/12/25 12:59 Resp 18 04/12/25 12:59 BP 107/52 L 04/12/25 12:51 Pulse Ox 95 04/12/25 12:59 O2 Del Method Room Air 04/12/25 12:46 Airway Mallampati Class: II TM Dist: >3cm Neck ROM: Full Heart: RRR Lungs: CTA Assessment and Plan Assessment Anesthesia Assessment: Anesthesia Plan Discussed and Smoking Cess. Discussed Final Anesthetic Review Family History of Problems with Anesthesia: No History of Problems with Anesthesia: No NPO: Yes ASA Class: II and Emergency Final Preanesthetic Review: Meds/Allgs Chart Reviewed, Consent Obtained/Reviewed and Anes Risks/Benef Reviewed Patient Risk: Low Procedure Risk: Low Anesthetic Plan Anesthetic Plan: GA Disposition: Standard PACU
[2025-04-12] MEDS: Nicotine 21 MG PATCH.TD24 TRANSDERMA (16:33)
[2025-04-12] MEDS: Piperacillin Sodium/Tazobactam 3.375 GM in 0.9 % Sodium Chloride 50 ML IV ×2 (16:33→21:15)
--- NOTE | 2025-04-12 16:47 | PC.NURSE ---
came to the nurse station and stated patient may leave AMA.
[2025-04-12] MEDS: oxyCODONE HCl Immed Release 5 MG TABLET 10 MG PO (18:04)
[2025-04-13] MEDS: 0.9 % Sodium Chloride 1,000 ML 100 ML IVCONT ×3 (01:34→21:46)
[2025-04-13] MEDS: Ketorolac Tromethamine 15 MG/ML VIAL IVPUSH ×4 (03:24→21:47)
[2025-04-13] MEDS: Piperacillin Sodium/Tazobactam 3.375 GM in 0.9 % Sodium Chloride 50 ML IV ×4 (03:24→21:49)
[2025-04-13 03:28] VITALS: BP 116/55; PULSE 60; RESP 18; TEMP 36
[2025-04-13] MEDS: oxyCODONE HCl Immed Release 5 MG TABLET 10 MG PO ×5 (03:29→22:23)
[2025-04-13 06:52] VITALS: BP 119/68; PULSE 58; RESP 15; TEMP 36.4; O2SAT 98
[2025-04-13] MEDS: Nicotine 21 MG PATCH.TD24 TRANSDERMA (07:14)
--- NOTE | 2025-04-13 09:53 | P.PNGS_ITS ---
Subjective Subjective Date of Service: 04/13/25 Interval history: Underwent I and D of a right perirectal abscess yesterday in the OR with Dr. Burns Currently complains of pain although better No fever Physical Exam Vital Signs: Vital Signs: Last Vital Signs Temp 97.6 F 04/13/25 06:52 Pulse 58 04/13/25 06:52 Resp 15 04/13/25 06:52 BP 119/68 04/13/25 06:52 Pulse Ox 98 04/13/25 06:52 O2 Del Method Room Air 04/13/25 06:52 O2 Flow Rate 97 04/13/25 03:28 BMI result Body Mass Index 29.1 Const: General: comfortable and no acute distress Resp: Effort & Inspection: normal respiratory effort Cardio: Rate: regular rate GI: Other: Right perirectal area I&D site, packing in place, some induration but no residual fluctuance Palpation (GI): Soft to palpation, not firm and nontender Objective Data Active Medications Acetaminophen (Acetaminophen 325 Mg Tablet) 650 mg PO Q6H PRN PRN Reason: Pain, Mild 1-3,fever,headache Albuterol Sulfate (Albuterol Sulfate 90 Mcg 8 Gm Inhaler) 1 puff INHALE RQ6H PRN PRN Reason: Shortness of Breath Calcium Carbonate (Calcium Carbonate 750 Mg Tab.Chew) 750 mg PO Q4H PRN PRN Reason: Heartburn Docusate Sodium (Docusate Sodium 100 Mg Capsule) 100 mg PO BID PRN PRN Reason: Constipation Sodium Chloride (Ns) 1,000 mls @ 100 mls/hr IVCONT .Q10H [facility] Last Admin: 04/13/25 01:34 Dose: 100 mls/hr Documented By: WALTER Piperacillin Sod/Tazobactam (Sod 3.375 gm/ Sodium Chloride) 50 mls @ 100 mls/hr IV Q6H [facility] Last Infusion: 04/13/25 04:02 Dose: Infused Documented By: WALTER Ketorolac Tromethamine (Ketorolac Tromethamine 15 Mg/Ml Vial) 15 mg IVPUSH Q6H [facility] Last Admin: 04/13/25 07:14 Dose: 15 mg Documented By: FRITZ Lorazepam (Lorazepam 1 Mg Tablet) 1 mg PO Q6H PRN PRN Reason: Anxiety Magnesium Hydroxide (Milk Of Magnesia 30 Ml Oral.Susp) 30 ml PO DAILY PRN PRN Reason: Constipation Melatonin (Melatonin 3 Mg Tablet) 6 mg PO BEDTIME PRN PRN Reason: Insomnia Morphine Sulfate (Morphine Sulfate 4 Mg/Ml Cartridge) 3 mg IVPUSH Q4H PRN; Protocol PRN Reason: Pain, Severe (Pain Scale 7-10) Naloxone HCl (Naloxone Hcl 0.4 Mg/Ml Vial) 0.04 mg IVPUSH Q5M PRN PRN Reason: Excessive sedation or RR < 8 Naloxone HCl (Naloxone Hcl 0.4 Mg/Ml Vial) 0.04 mg IVPUSH Q5M PRN PRN Reason: Excessive sedation or RR < 8 Nicotine (Nicotine 21 Mg Patch.Td24) 21 mg TRANSDERMA DAILY [facility] Last Admin: 04/13/25 07:14 Dose: 21 mg Documented By: FRITZ Oxycodone HCl (Oxycodone Hcl Immed Release 5 Mg Tablet) 5 mg PO Q4H PRN PRN Reason: Pain, Mild 1-3,fever,headache Oxycodone HCl (Oxycodone Hcl Immed Release 5 Mg Tablet) 10 mg PO Q4H PRN PRN Reason: Pain, Moderate(Pain Scale 4-6) Last Admin: 04/13/25 07:14 Dose: 10 mg Documented By: FRITZ Sodium Chloride (0.9 % Sodium Chloride Flush 3 Ml Syringe) [address] [facility] Last Admin: 04/13/25 08:02 Dose: Not Given Documented By: FRITZ Non-Admin Reason: IV Running Microbiology Microbiology Results: Microbiology 04/12/25 15:37 Gram Stain - Final Abscess Rectal Routine Culture - Preliminary No growth to date. Procedures Date of Service Date of Service: 04/13/25 Progress Note: A&P Assessment and plan (1) Perirectal abscess: Status: Acute Assessment and Plan: I&D done by Dr. Burns I pulled out the packing and a little bit I changed his dressings On diet Continue IV antibiotics Pain control Time Spent With Patient Time: Total time managing care of this patient today ____ minutes. Quality Stroke Does the patient have a stroke diagnosis?: No VTE Prior VTE?: No VTE Risk Level:: Surgical - low VTE Device Contraindication: N/A - Device Ordered VTE Drug Contraindication: Treatment Not Indicated
[2025-04-13] MEDS: Morphine Sulfate 4 MG/ML CARTRIDGE 3 MG IVPUSH (10:06)
--- NOTE | 2025-04-13 12:50 | MHC.CM.PN ---
CM MET WITH PT AND , PT IS INDEPENDENT AT BASELINE AND USES NO DME HE DECLINES TO COMPLETE A HCP PCP: VONNIE DAMIAN IMM DELIVERED PT AGREEABLE TO [facility] IF INDICATED AT DC, REFERRAL MADE WILL TRANSPORT
[2025-04-13] MEDS: LORazepam 1 MG TABLET PO (14:06)
[2025-04-13 15:09] VITALS: BP 121/56; PULSE 57; RESP 18; TEMP 36.9; O2SAT 100
[2025-04-13] MEDS: Docusate Sodium 100 MG CAPSULE PO (15:21)
[2025-04-13 19:22] VITALS: BP 123/58; PULSE 59; RESP 18; TEMP 36.6; O2SAT 98
[2025-04-13] MEDS: 0.9 % Sodium Chloride Flush 3 ML SYRINGE IVFLUSH (21:47)
[2025-04-14] MEDS: Ketorolac Tromethamine 15 MG/ML VIAL IVPUSH ×2 (03:26→08:34)
[2025-04-14] MEDS: Piperacillin Sodium/Tazobactam 3.375 GM in 0.9 % Sodium Chloride 50 ML IV ×2 (03:27→09:37)
[2025-04-14 04:00] VITALS: BP 122/58; PULSE 52; RESP 16; TEMP 36.6; O2SAT 99
[2025-04-14 07:58] VITALS: BP 111/57; PULSE 58; RESP 18; TEMP 36.1; O2SAT 100
--- NOTE | 2025-04-14 08:13 | PM.DS ---
DS: Providers Provider Date of Service: 04/14/25 Date of admission: 04/12/25 15:12 Date of discharge: 04/14/25 Primary care physician: Marysol Michelle MD Attending physician on admission: Dalila Burns Attending physician on discharge: Jonah Figueroa DS: Diagnosis Discharge Diagnosis (1) Perirectal abscess: Status: Acute DS: Summary Hospital Course Hospital Course: HPI AT ADMISSION: Tc Man is a 39 year old male with a right perirectal abscess who came into the emergency room yesterday but left AMA since we can only do his case around midnight because he had eaten while he was NPO in the emergency room. HOSPITAL COURSE: He was admitted to the surgical service for further treatment of the perirectal abscess. He was started on IV zosyn, IVF, kept NPO. On 04/12/25, he underwent incision and drainage of right perirectal abscess by Dr. Burns without immediate complication. He tolerated the procedure well. He was found to have a right perirectal abscess with some purulent material but a lot of indurated soft fatty tissue deep without communication with the anorectal opening. He had an uncomplicated recovery course. He remained inpatient 2 days following for IV abx. His pain improved and surrounding cellulitic changes resolved. His packing was removed. He was tolerating a solid diet, had good pain control and felt ready for discharge. His abscess culture grew Strep agalactiae (Grp B). He was discharged to home on 04/14/25 in stable condition and on a course of oral Augmentin. He is to follow up in the office in 1-2 weeks for a wound check. He was instructed on local daily wound care with dry dressing to I&D site and sitz baths 2-3 times a day. Status at Discharge Functional status at discharge: independent ambulation Overall status at discharge: patient is progressing back to baseline Time Attestation Discharge Coordination Time (in mins): 25 Quality: Safe Use of Opioids Does Pt have an Active Cancer Diagnosis on the Problem List?: No Quality: Stroke Does the patient have a stroke diagnosis?: No Physical Exam Vital Signs: Vital Signs: Last Vital Signs Temp 97.0 F 04/14/25 07:58 Pulse 58 04/14/25 07:58 Resp 18 04/14/25 07:58 BP 111/57 L 05/27/25 07:58 Pulse Ox 100 04/14/25 07:58 O2 Del Method Room Air 04/14/25 07:58 O2 Flow Rate 97 04/13/25 03:28 BMI result Body Mass Index 29.1 Const: General: comfortable, no acute distress and alert Orientation/consciousness: patient oriented x3 Skin: Other: right perirectal I&D site open and draining, packing removed, no residual induration or erythema Neuro: General: patient oriented x3 DS: Data Data Completed and Pending Labs on day of discharge: Preliminary micro results at discharge 04/12/25 15:37 Routine Culture - Preliminary Abscess Rectal Culture in progress. Discharge Plan Discharge Anticipated Discharge Date/Time: 04/14/25 09:38 Patient Disposition: Home, Self-Care Discharge Diagnosis: perirectal abscess, right Referrals: Marysol Patterson MD [Primary Care Provider] - 1 Week Jonah Figueroa MD [Physician] - 2 Weeks Discharge Medications: New docusate sodium [Colace] 100 mg capsule 100 mg PO BID Qty: 30 0RF oxycodone 5 mg tablet 5 mg PO Q4H PRN (Reason: pain (scale score 7-10)) Qty: 14 0RF Rx Instructions: Partial Fill upon patient request. ibuprofen 600 mg tablet 600 mg PO Q8H PRN (Reason: pain) Qty: 30 0RF Continued amoxicillin-pot clavulanate 875-125 mg tablet 1 tab PO BID 7 Days Qty: 14 0RF acetaminophen [Tylenol Extra Strength] 500 mg tablet 500 mg PO Q6H PRN (Reason: Mild Pain (Scale Score 1-4)) albuterol sulfate 90 mcg/actuation HFA aerosol inhaler 1 puff inhalation QID PRN (Reason: Respiratory Distress) docusate sodium [Colace] 100 mg capsule 100 mg PO BID PRN (Reason: Constipation) buprenorphine-naloxone [Suboxone] 8-2 mg film 1 film sublingual TID Discharge Orders: Discharge Order (Routine); Ordered 04/14/25 Ordered By: Luna Velez Diet: Advance to usual diet Activity on Discharge: As tolerated Stand Alone Forms: Patient Portal Discharge page, Work/School Release Print Language: Mongolian Activity Restrictions/Additional Instructions: Dry dressing to I&D site ; change daily and as needed. Complete your Augmentin (antibiotic) course. Hot sitz baths three times a day and after bowel movements. Massage area of the abscess 4 times a day. Stool softener twice a day for constipation. Follow up in office in 2 weeks. ([phone]) Call Your Doctor Or Return to ED If: ? ? -Your temperature exceeds 101.5? F? ? ? -You experience excessive pain or swelling ? ? -You have an unexpected reaction to medication ? ? -You experience continued vomiting/nausea Care Plan Goals: Return to baseline health and resume normal activities. Wound closure. Health Concerns: Perirectal abscess Plan of Treatment: s/p I&D of right perirectal abscess IV transitioned to oral antibiotics pain control f/u in office for wound eval Assessment: Improved Discharge Date/Time: 04/14/25 12:21
[2025-04-14] MEDS: oxyCODONE HCl Immed Release 5 MG TABLET 10 MG PO (08:33)
[2025-04-14] MEDS: LORazepam 1 MG TABLET PO (08:35)
[2025-04-14] MEDS: Nicotine 21 MG PATCH.TD24 TRANSDERMA (08:36)
[2025-04-14] MEDS: 0.9 % Sodium Chloride Flush 3 ML SYRINGE IVFLUSH (08:38)
--- NOTE | 2025-04-14 08:45 | PC.NURSE ---
patient is stating he would like to go home today,unsure what procedure is planned for him today,Dr. Figueroa notified
[2025-04-14] MEDS: 0.9 % Sodium Chloride 1,000 ML 100 ML IVCONT (09:14)
[2025-04-14] MEDS: Lidocaine 4 % Patch ADH..PATCH 1 PATCH TRANSDERMA (09:37)
[2025-04-14] MEDS: Morphine Sulfate 4 MG/ML CARTRIDGE 3 MG IVPUSH (09:40)
--- NOTE | 2025-04-14 09:40 | PM.PNGS ---
Subjective Subjective Date of Service: 04/14/25 <Luna Velez PA-C - Last Filed: 04/14/25 09:55> 04/14/25 <Jonah Figueroa MD - Last Filed: 04/14/25 09:55> Interval history: Feels improved. Denies significant pain, well controlled . Passing flatus no BM. OOB and ambulating. Wants to go home. <Luna Velez PA-C - Last Filed: 04/14/25 09:55> Physical Exam Vital Signs: Vital Signs: Last Vital Signs Temp 97.0 F 04/14/25 07:58 Pulse 58 04/14/25 07:58 Resp 18 04/14/25 07:58 BP 111/57 L 04/14/25 07:58 Pulse Ox 100 04/14/25 07:58 O2 Del Method Room Air 04/14/25 07:58 O2 Flow Rate 97 04/13/25 03:28 BMI result Body Mass Index 29.1 <Luna Velez PA-C - Last Filed: 04/14/25 09:55> Const: General: comfortable, no acute distress and alert <Luna Velez PA-C - Last Filed: 04/14/25 09:55> Orientation/consciousness: patient oriented x3 <STELLA Lugo Last Filed: 04/14/25 09:55> Resp: Effort & Inspection: normal respiratory effort <Luna Velez PA-C - Last Filed: 04/14/25 09:55> Skin: Other: right perirectal abscess- area soft, no induration or edema <Luna Velez PA-C - Last Filed: 04/14/25 09:55> Neuro: General: patient oriented x3 and moves all extremities <STELLA Lugo Last Filed: 04/14/25 09:55> Objective Data Active Medications Acetaminophen (Acetaminophen 325 Mg Tablet) 650 mg PO Q6H PRN PRN Reason: Pain, Mild 1-3,fever,headache Albuterol Sulfate (Albuterol Sulfate 90 Mcg 8 Gm Inhaler) 1 puff INHALE RQ6H PRN PRN Reason: Shortness of Breath Calcium Carbonate (Calcium Carbonate 750 Mg Tab.Chew) 750 mg PO Q4H PRN PRN Reason: Heartburn Docusate Sodium (Docusate Sodium 100 Mg Capsule) 100 mg PO BID PRN PRN Reason: Constipation Last Admin: 04/13/25 15:21 Dose: 100 mg Documented By: ADY Sodium Chloride (Ns) 1,000 mls @ 100 mls/hr IVCONT .Q10H [facility] Last Admin: 04/14/25 09:14 Dose: 100 mls/hr Documented By: CHANDAN Piperacillin Sod/Tazobactam (Sod 3.375 gm/ Sodium Chloride) 50 mls @ 100 mls/hr IV Q6H [facility] Last Admin: 04/14/25 09:37 Dose: 100 mls/hr Documented By: CHANDAN Ketorolac Tromethamine (Ketorolac Tromethamine 15 Mg/Ml Vial) 15 mg IVPUSH Q6H [facility] Last Admin: 04/14/25 08:34 Dose: 15 mg Documented By: CHANDAN Lidocaine (Lidocaine 4 % Patch Adh..Patch) 1 patch TRANSDERMA DAILY [facility]; Protocol Last Admin: 04/14/25 09:37 Dose: 1 patch Documented By: CHANDAN Lorazepam (Lorazepam 1 Mg Tablet) 1 mg PO Q6H PRN PRN Reason: Anxiety Last Admin: 04/14/25 08:35 Dose: 1 mg Documented By: CHANDAN Magnesium Hydroxide (Milk Of Magnesia 30 Ml Oral.Susp) 30 ml PO DAILY PRN PRN Reason: Constipation Melatonin (Melatonin 3 Mg Tablet) 6 mg PO BEDTIME PRN PRN Reason: Insomnia Morphine Sulfate (Morphine Sulfate 4 Mg/Ml Cartridge) 3 mg IVPUSH Q4H PRN; Protocol PRN Reason: Pain, Severe (Pain Scale 7-10) Last Admin: 04/13/25 10:06 Dose: 3 mg Documented By: FRITZ Naloxone HCl (Naloxone Hcl 0.4 Mg/Ml Vial) 0.04 mg IVPUSH Q5M PRN PRN Reason: Excessive sedation or RR < 8 Naloxone HCl (Naloxone Hcl 0.4 Mg/Ml Vial) 0.04 mg IVPUSH Q5M PRN PRN Reason: Excessive sedation or RR < 8 Nicotine (Nicotine 21 Mg Patch.Td24) 21 mg TRANSDERMA DAILY [facility] Last Admin: 04/14/25 08:36 Dose: 21 mg Documented By: CHANDAN Oxycodone HCl (Oxycodone Hcl Immed Release 5 Mg Tablet) 5 mg PO Q4H PRN PRN Reason: Pain, Mild 1-3,fever,headache Oxycodone HCl (Oxycodone Hcl Immed Release 5 Mg Tablet) 10 mg PO Q4H PRN PRN Reason: Pain, Moderate(Pain Scale 4-6) Last Admin: 04/14/25 08:33 Dose: 10 mg Documented By: CHANDAN Sodium Chloride (0.9 % Sodium Chloride Flush 3 Ml Syringe) 3 ml IVFLUSH QSHIFT [facility] Last Admin: 04/14/25 08:38 Dose: 3 ml Documented By: CHANDAN <Luna Velez PA-C - Last Filed: 04/14/25 09:55> Microbiology Microbiology Results: Microbiology 04/12/25 15:37 Gram Stain - Final Abscess Rectal Routine Culture - Preliminary Culture in progress. <Luna Velez PA-C - Last Filed: 04/14/25 09:55> Procedures Date of Service Date of Service: 04/14/25 <Luna Velez PA-C - Last Filed: 04/14/25 09:55> 04/14/25 <Jonah Figueroa MD - Last Filed: 04/14/25 09:55> Progress Note: A&P Assessment and plan (1) Perirectal abscess: Status: Acute <Luna Velez PA-C - Last Filed: 04/14/25 09:55> Assessment and Plan: Status post I&D No fistulous connection seen I&D site clean, no residual induration I removed the entire packing and applied an ABD pad as dressings He says he is ready to be discharged Oral antibiotics I also recommended for him to see his primary care physician His was with him at bedside Hot Sitz baths explained to patient <Jonah Figueroa MD - Last Filed: 04/14/25 09:55> Assessment and Plan: S/p I&D of right perirectal abscess in OR on 04/12/25. Area significantly improved, packing removed this morning, draining on own. Dc to home on oral abx today. Dry dressing change daily. F/u in office in 1-2 weeks for wound check. Sitz baths 2-3x per week. <Luna Velez PA-C - Last Filed: 04/14/25 09:55> Time Spent With Patient Time: Total time managing care of this patient today ____ minutes. <Luna Velez PA-C - Last Filed: 04/14/25 09:55> Quality Stroke Does the patient have a stroke diagnosis?: No <Luna Velez PA-C - Last Filed: 04/14/25 09:55> VTE Prior VTE?: No <Luna Velez PA-C - Last Filed: 04/14/25 09:55> VTE Risk Level:: Surgical - low <Luna Velez PA-C - Last Filed: 04/14/25 09:55> VTE Device Contraindication: N/A - Device Ordered <Luna Velez PA-C - Last Filed: 04/14/25 09:55> VTE Drug Contraindication: Treatment Not Indicated <Luna Velez PA-C - Last Filed: 04/14/25 09:55>
--- NOTE | 2025-04-14 10:25 | MHC.CM.PN ---
pt dcd home self care
--- NOTE | 2025-04-14 10:46 | PC.NURSE ---
discharge instructions explained to patient by Tameka CORTES
--- NOTE | 2025-04-14 12:26 | PC.NURSE ---
discharge instructions explained to patient by rn hemodialysis charge Cassie
--- NOTE | 2025-04-14 16:23 | W.MHC.F2F ---
Service Date Service Date: 04/14/25 Encounter Date of encounter: 04/14/25 Reasons for Services Signs and symptoms assessed: perirectal pain, I&D site and drainage Reason for half-way: wound care Homebound: Leaving the home is medically contraindicated at this time without the asist of a device and/or another person due th the listed conditions above and below. Reason homebound: weakness related to hospital stay and unable to drive Homebound supporting statement: Mr. Evert Man underwent I&D of right perirectal abscess in the OR. He will need home VNA for wound care and dressing changes to the I&D site. Certification: Based on the above findings, I certify that this patient is confined to the home and needs intermittent half-way care, physical therapy and/or speech therapy, or continues to need occupational therapy. The patient is under my care, and I have initiated the establishment of the plan of care. The patient will be followed by a physician who will periodically review the plan of care. Time Spent With Patient Time: Total time managing care of this patient today ____ minutes.
== END 2025-04-14 12:21 | disposition home or self-care (01) | DRG 394 ==
LOC: HO.ED 12:31 → HO.SSS 13:24 → HO.S3 15:13
PROVIDERS: Admitting Provider Surgery; Emergency Provider Emergency Medicine; PCP Internal Medicine; Visit Provider Surgery
PROC: 0Y900ZZ Drainage of Right Buttock, Open Approach (ICD-10-PCS; CPT 46040; principal; 2025-04-12 14:30)
DX: K61.1 Rectal abscess (principal); F11.20 Opioid dependence, uncomplicated; F17.210 Nicotine dependence, cigarettes, uncomplicated; Z71.6 Tobacco abuse counseling; Z79.899 Other long term (current) drug therapy
CPT/HCPCS: 36415; 72193; 80048; 80076; 83605; 83735; 85025; 85610; 85652; 86140; 87040; 87070; 87147; 87205; 99284; 99285; J0690; J1100; J1885; J2003; J2250; J2270; J2405; J2543; J2704; J2795; J3010; Q9967

== ENCOUNTER → 2025-04-12 13:15 | Outpatient (BNV) | payer MEDICARE, SELFPAY | PROVIDERS: Emergency Provider Emergency Medicine; PCP Internal Medicine; Visit Provider Surgery | DX: K61.1 Rectal abscess (principal) | CPT/HCPCS: 46040; 99024; 99222; G0180 ==

== ENCOUNTER 2025-04-24 10:23 | Outpatient (AMB) | payer MEDICARE, SELFPAY ==
--- NOTE | 2025-04-24 10:25 | MHC.OFFVIS ---
Vital Signs 04/24/25 10:30 Weight 158 lb BP 129/58 L Blood Pressure Location Rt brachial Position Sitting Pulse 78 Intake Visit Reasons: s/p cyst excision 04/12/25 Intake Note: Patient here s/p incision and drainage of right perirectal abscess on 04-12-2025. Patient c/o: pain, oozing. Rx pain meds help. Keeping area covered with gauze. Clinic Office Coordinator Required: No Accompanied by: Self / Same As Patient Allergies No Known Allergies Allergy (Verified 04/24/25 10:29) HPI HPI s/p cyst excision 04/12/25: Details: Mr. Evert Man presents for a wound check. He underwent incision and drainage of right perirectal abscess on 04/12/25. He was found to have a right perirectal abscess with some purulent material but a lot of indurated soft fatty tissue deep, no communication with the anorectal opening. He tolerated the procedure well and remained inpatient for IV abx. He was discharged on 04/14/25 oral augmentin. He reports significant improvement in the pain but reports some persistent discomfort especially at the end of the day necessitating oxycodone. It is still uncomfortable to sit down but improving. He reports some yellow/pink tinged drainage from the I&D sites and changes his dressing daily. He continues to do sitz baths. He has a few more days of the antibiotic left. He denies fever, chills, nausea, vomiting, diarrhea, purulent drainage. He does not feel ready to return to work yet. [facility] Surgical History History of removal of cyst Family History Mother No problems noted. Father History of esophageal cancer Social History Household Members: Spouse Housing: Apartment Do you presently have visiting nurse or other home services: No Alcohol intake: never Patient Tobacco Use Status: Current everyday Tobacco user Cigarettes Per Day: 20 Substance Use Type: Marijuana service: No Review of Systems Const All systems reviewed & are unremarkable except as noted in HPI and below Physical Exam Vital Signs: Last Vital Signs Pulse 78 04/24/25 10:30 BP 129/58 L 04/24/25 10:30 Const General: comfortable, no acute distress and alert Orientation/consciousness: patient oriented x3 Skin Other: right perirectal I&D sites- two small 1cm linear wounds persist, mild surrounding induration that remains tender to palpation, no drainage noted (scant serosanguineous on dressing which was taken down), no fluctuance, no surrounding erythema, no increased warmth Neuro General: patient oriented x3 and moves all extremities Assessment & Plan Assessment & Plan (1) Wound check, abscess: Code(s): Z51.89 - Encounter for other specified aftercare Category: Medical Plan 39 year old male s/p I&D of right perirectal abscess on 04/12/25. He tolerated the procedure well and was discharged on oral augmentin. Overall, the I&D sites are clean appearing with mild residual induration of the area but overall it continues to improve. The I&D sites do remain open with some scant serosanguineous output and it was therefore recommended to keep the sites covered while they remain open and draining. He does not feel comfortable returning to work until they are closed as he works in [employer]. He was instructed to follow up in 2 weeks and can return to work at the time if wounds healed at that time. He is comfortable with the plan. He can follow up sooner if needed. Coding Level of Care Code Global (68199) Diagnoses Wound check, abscess Z51.89
[2025-04-24 10:30] VITALS: BP 129/58; PULSE 78
--- OUTSIDE RECORDS SUMMARY | 2025-04-24 11:09 | XMS_ITS | Encounter Summary ---
Author Organization [employer] Address [address] [place] [address] [address] [place] [address] Care Team Providers Care Basket Filler Name Role Phone Marysol Patterson MD Primary Care Provide r Reason for Visit * Reason Onset Date Comments No Show 04/22/2025 Encounter Details Date Type Department Care Team ([facility] st Contact Info) Description 04/22/2025 Telephone [facility] [address] [place] [address] Marysol Patterson MD [address] [place] [address] No Show Social History Tobacco Use Types Packs/Day Years [...] is your housing situation today? I have pacheco warren 11/07/[address] you [...] AM EDT documented as of this encounter Miscellaneous Notes * Telephone Encounter - Bradley Price RN - 04/22/2025 11:13 AM EDT TC placed to patient [phone] regarding below message. RN unable to leave an VM. Someone answered and the phone hung up abruptly. Pt to F/U PRN. * Telephone Encounter - Ranjana Rios - 04/22/2025 10:16 AM EDT Pt no showed to appt on 04/22/25 Hospital fu. documented in this encounter Plan of Treatment Upcoming Encounters Date Type Department Care Team (Late st Contact Info) Description 05/05/2025 1:00 PM EDT Office Visit [facility] [address], [place] [id number] James Marte MD [address] [place] [address] documented as of this encounter Visit Diagnoses Not on filedocumented in this encounter Additional Health Concerns Assessment Noted Time PHQ-9 Depression Total Score: 6 11/07/20 23 9:36 AM EST documented as of this encounter Care Teams Basket Filler Relationship Specialty Start Date End Date Marysol Patterson MD [address] [place] [address] PCP - General Family Medicine 08/07/18 documented as of this encounter
== END 2025-04-24 10:43 | disposition home or self-care (01) ==
LOC: HO.HGS 10:23
PROVIDERS: PCP Internal Medicine; Visit Provider Physician Assistant Surgical
DX: Z51.89 Encounter for other specified aftercare (principal)
CPT/HCPCS: 99024

== ENCOUNTER → 2025-04-24 10:23 | Outpatient (BNVA) | payer SELFPAY | PROVIDERS: PCP Internal Medicine; Visit Provider Physician Assistant Surgical | DX: Z48.01 Encounter for change or removal of surgical wound dressing (principal); K61.1 Rectal abscess | CPT/HCPCS: 99212 ==

== ENCOUNTER 2025-05-11 14:36 | Outpatient (AMB) | payer MEDICARE, SELFPAY ==
--- NOTE | 2025-05-11 14:40 | MHC.OFFVIS ---
Vital Signs 05/11/25 14:44 Weight 155 lb BP 133/68 Blood Pressure Location Rt brachial Position Sitting Pulse 75 Intake Visit Reasons: s/p cyst excision 04-12-25 Intake Note: Patient here s/p incision and drainage of right perirectal abscess on 04-12-2025. Completed Augmentin course. Patient c/o: denies oozing, not bothersome. Back to riding motorcycle. Horseradish Maker Required: No Accompanied by: Self / Same As Patient Allergies No Known Allergies Allergy (Verified 04/24/25 10:29) Medication List - Last Reconciled 05/11/25 by Jonah Figueroa MD acetaminophen (Tylenol Extra Strength) 500 mg PO Q6H PRN albuterol sulfate 90 mcg/actuation 1 puff inhalation QID PRN buprenorphine-naloxone 8-2 mg (Suboxone) 1 film sublingual TID docusate sodium (Colace) 100 mg PO BID docusate sodium (Colace) 100 mg PO BID PRN ibuprofen 600 mg PO Q8H PRN HPI HPI s/p cyst excision 04-12-25: Details: He continues to do well after I and D of a perianal abscess last Mar, 2025. He says he has healed well already. [facility] Surgical History History of removal of cyst Family History Mother No problems noted. Father History of esophageal cancer Social History Household Members: Spouse Housing: Apartment Do you presently have visiting nurse or other home services: No Alcohol intake: never Patient Tobacco Use Status: Current everyday Tobacco user Cigarettes Per Day: 20 Substance Use Type: Marijuana service: No Review of Systems Const Denies chills and Denies fever(s) Physical Exam Vital Signs: Last Vital Signs Pulse 75 05/11/25 14:44 BP 133/68 05/11/25 14:44 Const General: comfortable and no acute distress Back/Spine/Pelvis Other: I&D site well healed, no induration, no fluctuance, no redness Assessment & Plan Assessment & Plan (1) Perirectal abscess: Code(s): K61.1 - Rectal abscess Category: Medical Plan: The I&D site is completely healed. There was no induration, discharge or redness. He can therefore follow up on a p.r.n. basis. Coding Level of Care Code Est Pt Level 1 (75403) Diagnoses Perirectal abscess K61.1
[2025-05-11 14:44] VITALS: BP 133/68; PULSE 75
--- OUTSIDE RECORDS SUMMARY | 2025-05-11 16:09 | XMS_ITS | Clinical Summary ---
Author Organization [employer] Address [address] [facility] 7 [place] [address] Care Team Providers Care Access Specialist Name Role Phone Marysol Patterson MD Primary Care Provide r Allergies No known active allergies Medications * This document contains information received from the source organization and may not represent a complete record from that organization. cholecalcifero l (Vitamin D-3) 50 MCG (1999) capsule Take 1 capsule by mouth at bed time. 06/23/20 22 Active hydrOXYzine pamoate (Vistaril) 25 MG capsuleIndicat ions:Anxiety Take 1 capsule (25 mg) by mouth every 6 (six) hours if needed for itching for up to 10 days. 30 capsule 11/01/20 22 Active Additional Information Patient not taking.Reported on 05/06/2025 naloxone (Narcan) 4 mg/0.1 mL nasal sprayIndicatio ns:Uncomplicat ed opioid dependence (CMS/[facility]) Administer 1 spray (4 mg) into affected nostril(s) if needed for opioid reversal. May repeat every 2-3 minutes if needed, alternating nostrils, until medical assistance becomes available. 2 each 3 09/15/20 24 025 Active loratadine (Claritin) 10 MG tabletIndicati ons:Seasonal allergies Take 1 tablet (10 mg) by mouth Once per day. 90 tablet 3 10/28/20 24 Active docusate sodium (Colace) 100 MG capsule Take 1 capsule (100 mg) by mouth if needed in the morning and at bedtime for constipation. 60 capsule 3 12/09/07 24 025 Active fluticasone (Flonase Allergy Relief) 50 MCG/ACT nasal spray Administer 1 spray into each nostril Once per day. Shake gently. Before first use, prime pump. After use, clean tip and replace cap. 16 g 3 10/28/20 24 Active Buprenorphine HCl-Naloxone HCl (Suboxone) 8-2 MG SL filmIndication s:Uncomplicate d opioid dependence (CMS/HCC) Place 1 Film under the tongue 3 times daily for 28 days. 84 Film 04/27/20 25 025 Active ibuprofen 600 MG tablet Take 1 tablet by mouth every 8 (eight) hours if needed for pain. 04/29/20 25 Active sertraline (Zoloft) 25 MG tabletIndicati ons:Mixed anxiety and depressive disorder Take 1 tablet (25 mg) by mouth Once per day for 5 days, THEN 2 tablets (50 mg) Once per day for 25 days. 55 tablet 05/11/20 25 025 Active albuterol 108 (90 Base) MCG/ACT inhaler Inhale 2 puffs every 4 (four) hours if needed. 09/23/20 025 Discontinued(M ed list cleanup (will not trigger notification to Pharmacy)) acetaminophen (Tylenol) 500 MG tablet take 1 tablet (500MG) by oral route every 6 hours as needed 02/20/20 025 Discontinued(D uplicate order (will not trigger notification to Pharmacy)) baclofen (Lioresal) 20 MG tablet Take 1 tablet by mouth every 8 (eight) hours. 05/23/20 025 Discontinued(M ed list cleanup (will not trigger notification to Pharmacy)) cyclobenzaprin e (Flexeril) 10 MG tablet Take 1 tablet by mouth every 8 (eight) hours. 06/23/20 025 Discontinued(M ed list cleanup (will not trigger notification to Pharmacy)) diclofenac (Voltaren) 75 MG EC tablet Take 1 tablet by mouth every 12 (twelve) hours. 05/23/20 025 Discontinued(M ed list cleanup (will not trigger notification to Pharmacy)) lidocaine (Xylocaine) 5 % ointment Apply topically at bed time. 05/01/2005/06/2 025 Discontinued(M ed list cleanup (will not trigger notification to Pharmacy)) Multiple Vitamin (Multi-Vitamin ) tablet take 1 tablet by oral route every day with food 09/30/20 025 Discontinued(M ed list cleanup (will not trigger notification to Pharmacy)) raNITIdine (Zantac) 150 MG tablet take 1 tablet by oral route 2 times every day 02/20/20 025 Discontinued(M ed list cleanup (will not trigger notification to Pharmacy)) mirtazapine (Remeron) 15 MG tabletIndicati ons:Current mild episode of major depressive disorder, unspecified whether recurrent (CMS/HCC) Take 1 tablet (15 mg) by mouth at bedtime. 30 tablet 11/01/20 025 Discontinued(O ther) sertraline (Zoloft) 100 MG tabletIndicati ons:Mixed anxiety and depressive disorder TAKE 1 TABLET BY MOUTH EVERY DAY 90 tablet 3 11/29/19 025 Discontinued(O ther) nicotine polacrilex (Commit) 4 MG lozengeIndicat ions:Tobacco dependence Dissolve 1 lozenge (4 mg) in the mouth every 1 (one) hour if needed for smoking cessation. 100 lozenge 01/16/20 025 Discontinued(M ed list cleanup (will not trigger notification to Pharmacy)) acetaminophen (Tylenol) 500 MG tabletIndicati ons:Dental abscess Take 1 tablet (500 mg) by mouth every 6 (six) hours if needed for mild pain for up to 20 doses. 20 tablet 01/18/20 025 Discontinued(D uplicate order (will not trigger notification to Pharmacy)) varenicline (Chantix Continuing Month Adair) 1 MG tablet Take 1 tablet (1 mg) by mouth 2 times daily. Take with full glass of water. 60 tablet 2 07/31/20 025 Discontinued(M ed list cleanup (will not trigger notification to Pharmacy)) acetaminophen (Tylenol) 500 MG tabletIndicati ons:Open fracture of tooth, initial encounter Take 1 tablet (500 mg) by mouth every 6 (six) hours if needed for mild pain for up to 20 doses. 20 tablet 01/24/20 24 025 Discontinued(D uplicate order (will not trigger notification to Pharmacy)) acetaminophen (Tylenol) 500 MG tabletIndicati ons:History of tooth extraction, unspecified edentulism class Take 1 tablet (500 mg) by mouth every 6 (six) hours if needed for mild pain for up to 20 doses. 20 tablet 02/12/20 24 025 Discontinued(M ed list cleanup (will not trigger notification to Pharmacy)) Buprenorphine HCl-Naloxone HCl (Suboxone) 8-2 MG SL filmIndication s:Uncomplicate d opioid dependence (CMS/HCC) Place 1 Film under the tongue 3 times daily for 28 days. Do not start before March 31, 2025. 84 Film 03/31/20 25 025 Discontinued(R eorder (will not trigger notification to Pharmacy)) Active Problems Problem Noted Date Diagnosed Date Abscess, postauricular 05/08/2025 Encounter for removal of sutures 05/08/2025 Perirectal abscess 05/08/2025 Smoker in home 05/08/2025 UTI symptoms 11/07/2023 Assessment & Plan (11/07/2023 10:21 AM EST): Patient will be contacted with results Encounter for preventive care 11/07/2023 Assessment & Plan (11/07/2023 10:21 AM EST): See HPI Acute otitis media 11/07/2023 Chronic low back pain 03/09/2023 Tobacco dependence 01/16/2023 Low back pain 10/31/2022 Acute thoracic back pain 10/31/2022 Elevated blood pressure reading 10/31/2022 Fatigue 10/31/2022 Flashbacks 10/31/2022 Insomnia 10/31/2022 Mixed anxiety and depressive disorder 10/31/2022 Premature ejaculation 10/31/2022 Sexual dysfunction 10/31/2022 Opioid dependence, uncomplicated 02/11/2018 Mood disorder 02/11/2018 Chronic back pain 02/11/2018 Encounters Date Type Department Care Team Description 05/11/2025 9:30 AM EDT Office Visit [address] [phone] Pilar Crespo NP Hospital discharge follow-up (Primary Dx); Mixed anxiety and depressive disorder; Anxiety; Current mild episode of major depressive disorder, unspecified whether recurrent (CMS/HCC); Medication refill 05/11/2025 Travel 05/08/2025 Telephone [facility] [address] [place] [phone] Viral Bangura MA chart prep 05/06/[address] [phone] Marysol Patterson MD HDF Reschedule 05/05/2025 1:00 PM EDT Clinical Support [address] [address] Elvira Ash RN Uncomplicated opioid dependence (CMS/HCC) (Primary Dx) 05/05/2025 Travel 05/04/[address] [phone] Marysol Patterson MD 05/01/2025 Telephone [facility] [address] [place] [phone] Marysol Patterson MD 04/30/[address] [phone] Marysol Patterson MD Appointment Request 04/27/2025 Refill [facility] [address] [place] [phone] Elvira Ash RN Uncomplicated opioid dependence (CMS/HCC) 04/22/[address] [phone] Marysol Patterson MD No Show 04/21/2025 Telephone [facility] [address] [place] [phone] Marysol Patterson MD chart prep 04/16/[address] [address] Marysol Patterson MD FYI 04/11/2025 Orders Only GENERIC EXTERNAL DATA DEPARTMENT Provider, Generic External Data 04/08/2025 1:30 PM EDT Clinical Support [address] [address] Elvira Ash RN Uncomplicated opioid dependence ([facility]/HCC) (Primary Dx) 04/08/2025 Travel 03/23/2025 Refill [facility] [address] [place] [address] Elvira Ash RN Uncomplicated opioid dependence ([facility]/HCC) 03/19/2025 Telephone [facility] [address] [place] [phone] Elvira Ash RN 03/12/2025 Refill [facility] [address] [place] [phone] Elvira Ash RN Uncomplicated opioid dependence ([facility]/HCC) 03/12/2025 Telephone [facility] [address] [place] [phone] Elvira Ash RN 03/05/2025 Telephone [facility] [address] [place] [phone] Marysol Patterson MD Nurse Triage 03/04/2025 Refill [facility] [address] [place] [phone] Elvira Ash RN Uncomplicated opioid dependence ([facility]) from Last 3 Months Immunizations Immunization Administration Dates Next Due DTaP 06/19/1991, 9,01/11/1989,1987,07/17/1986 Hep B, Adolescent or Pediatric 02/03/2000,1999,06/25/1998 Hib ([facility]) 08/25/1988 IPV 06/19/1991, 9,01/11/1989,1987,07/14/1986 Influenza, IIV3, injectable 08/19/2010 MMR 06/19/1991,11/03/1987 TD (adult), 2 Lf tetanus tox oid, preservative free, adsorbed 01/04/2000 Tdap 11/07/2023 Social History Tobacco Use Types Packs/Day Years Used Date Smoking Tobacco: Every Day Cigarettes Smokeless Tobacco: Never Tobacco Cessation:Ready to Q uit: Not Asked; Counseling Given: Not Answered Alcohol Use Standard Drinks/Week Comments Not Currently 0 (1 standard drink = 0.6 oz pur e alcohol) Depression Answer Date Recorded Patient Health Questionnaire-9 Score 4 05/05/2025 Patient Health Questionnaire-9 Score 4 05/05/2025 Last PHQ-9: Questionnaire Data Not on file 0 05/05/2025 Housing Stability Answer Date Recorded What is [...] Answer Date Recorded Patient Health Questionnaire-2 Score 2 05/05/2025 Internet Access Answer Date Recorded Internet Access Q1 Yes 10/30/2024 Internet Access Q2 Not on file 10/30/2024 Sex and Gender Information Value Date Recorded Sex Assigned at Male 09/18/2022 10:16 AM EDT Legal Sex Male 10:16 AM EDT Gender Identity Male 09/18/2022 10:16 AM EDT Sexual Orientation Straight 09/18/2022 10 :16 AM EDT Last Filed Vital Signs Vital Sign Reading Time Taken Comments Blood Pressure 138/72 05/11/2025 10:05 AM EDT Pulse 85 05/11/2025 10:05 AM EDT Temperature 36.3 C (97.3 F) 05/11/2025 10:05 AM EDT Respiratory Rate 18 05/11/2025 10:05 AM EDT Oxygen Saturation 96% 05/11/2025 10:05 AM EDT Inhaled Oxygen Concentration - - Weight 72.7 kg (160 lb 3.2 oz) 05/11/2025 10:05 AM EDT Height 160 cm (5' 3 ) 05/11/2025 10:05 AM EDT Body Mass Index 28.38 05/11/2025 10:05 AM EDT Plan of Treatment Upcoming Encounters Date Type Department Care Team (Late st Contact Info) Description 06/02/2025 2:15 PM EDT Office Visit [facility] [address], [place] [phone] James Marte MD [address] [place], [place] [phone] 07/29/2025 10:00 AM EDT Office Visit [facility] [address], [place] [phone] Marysol Patterson MD [address], [place] [phone] Health Maintenance Due Date Last Done Comments Dental Oral Exam 1985 Dental Prophylaxis 1985 Dental X-Ray: Full Mouth 1985 Hepatitis B Vaccines (4 of 4 - 4-dose series) 02/29/2000 02/03/2000, 01/04/2000, 06/25/1998 Family Planning (PISQ) 2000 Pneumococcal Vaccine: Pediatrics (0 to 5 Years) and At-Risk Patients (6 to 49) Years (1 of 2 - PCV) 2004 COVID-19 Vaccine ( - season) 2024 Dental X-Ray: Bitewings 01/24/2025 01/24/2024, 01/17 Influenza Vaccine (Season Ended) 2025 08/19/2010 SDOH Screening 10/30/2025 10/30/2024 Alcohol/Substance Use Screening 05/05/2026 05/05/2025 Depression Screening 05/05/2026 05/05/2025, 05/05/20 25 Disability Screening 05/11/2026 05/11/2025 Tobacco Screening 05/11/2026 05/11/2025 Lipid Panel 11/26/2028 11/26/2023, 12/20/2021 DTaP/Tdap/Td Vaccines (7 - Td or Tdap) 11/07/2033 11/07/2023, 01/04/2000, 06/19/1991, Additional history exists Zoster Vaccines (1 of 2) 2035 RSV Patients and Patients Aged 60 years or older (1 - 1-dose 75+ series) 2060 HIB Vaccines Completed 08/25/1988 IPV Vaccines Completed 06/19/1991, 06/21, 01/11/1989, Additional history exists HIV Screening Completed 11/26/2023, 06/22/2022 Hepatitis C Screening Completed 11/26/2023, 022 HPV Vaccines Aged Out No longer eligi ble based on patient's age to complete this topic Hepatitis A Vaccines Aged Out No long er eligible based on patient's age to complete this topic Meningococcal B Vaccine Aged Out No l onger eligible based on patient's age to complete this topic Meningococcal Vaccine Aged Out No kirk marianne eligible based on patient's age to complete this topic RSV under 20 months Aged Out No longe r eligible based on patient's age to complete this topic Rotavirus Vaccines Aged Out No longer eligible based on patient's age to complete this topic Procedures Procedure Name Priority Date/Time Associated Diagnosis Comments POCT LOGAN-14 URINE DRUG SCREEN Routine 05/05/2025 1:18 PM EDT Uncomplicated opioid dependence (CMS/HCC) CT PELVIS W CONTRAST Routine 04/11/2025 4:39 PM EDT LACTIC ACID Routine 04/11/2025 3:33 PM EDT GRAM STAIN Routine 04/11/2025 3:33 PM EDT SED RATE BY MODIFIED WESTERGREN Routine 04/11/2025 2:49 PM EDT C-REACTIVE PROTEIN Routine 04/11/2025 2: 49 PM EDT MAGNESIUM Routine 04/11/2025 2:49 PM EDT BASIC METABOLIC PANEL Routine 04/11/2025 2:49 PM EDT HEPATIC FUNCTION PANEL Routine 04/11/2025 2:49 PM EDT PROTHROMBIN TIME-INR Routine 04/11/2025 2:49 PM EDT CBC WITH AUTO DIFFERENTIAL Routine 04/11/2025 2:49 PM EDT BLOOD CULTURE (SECOND) Routine 04/11/2025 2:49 PM EDT BLOOD CULTURE (FIRST) Routine 04/11/2025 2:49 PM EDT POCT LOGAN-14 URINE DRUG SCREEN Routine 04/08/2025 1:55 PM EDT Uncomplicated opioid dependence (CMS/HCC) BITEWING - SINGLE RADIOGRAPHIC IMAGE Routine 01/24/2024 11:30 AM EST Open fracture of tooth, initial encounter HEPATITIS C AB W/REFL TO HCV RNA, QN, PCR Routine 11/26/2023 8:03 AM EST Encounter for preventive care HIV 1/2 ANTIGEN/ANTIBODY, FOURTH GENERATION W/RFL Routine 11/26/2023 8:03 AM EST Encounter for preventive care LIPID PANEL, STANDARD Routine 11/26/2023 8:03 AM EST Encounter for preventive care from Last 3 Months or Most Recently Relevant to Health Maintenance Results * POCT LOGAN-14 Urine Drug Screen (05/05/2025 1:18 PM EDT) Only the most recent of2 resultswithin the time period is included. THC Positive Cocaine Screen, Urine Negative Opiate Screen, Urine Negative Methamphetamine Screen Urine Negative Amphetamine Screen, Urine Negative Benzodiazepines Screen, Urine Negative Barbiturate Screen, Urine Negative Methadone Screen, Urine Negative Buprenophine Screen, Urine Positive TCA, Urine Negative MDMA Urine Negative ng/mL Oxycodone Screen, Urine Negative Phencyclidine (PCP), Urine Negative Fentanyl, Urine Negative Urine Urine specimen obtained by clean catch procedure / Unknown 05/05/2025 1:18 PM EDT us Hemant Aly MD POINT OF CARE TEST ENTER/EDIT ORDERABLES Final Result * CT Pelvis w/ Contrast (04/11/2025 4:39 PM EDT) Anatomical Region Laterality Modality Body, Pelvis Computed Tomogra phy 04/11/2025 4:39 PM EDT Narrative 04/11/2025 4:40 PM EDT [place] [address] CT Scan Report Signed Patient: Tc Griffith MR# : [id number] : 1985 Acct:[id number] Age/Sex: 39 / M ADM Date: 04/11/25 Loc: HO.ED Attending Dr: Ordering Physician: Nora Gtz Date of Service: 04/11/25 Procedure(s): CT pelvis w IV con Accession Number(s): [id number] cc: Marysol Patterson MD; Nora Gtz Report Number: [id number]: Total DLP = 275.00 mGy-cm CLINICAL HISTORY: perirectal abscess induration r o deeper tracking CT PELVIS WITH CONTRAST Comparison: None Findings: There is a wall enhancing thick-walled fluid collection in the right posterior perianal region with intergluteal extension. Suspected abscess measures 4.3 x 4.1 x 2.6 cm (Length x Height x Width). There is adjacent fat stranding and skin thickening. No deep or superficial gas locule. No foreign body. No pelvic free fluid or mesenteric edema. Multiple small reactive inguinal lymph nodes, right greater than left. No acute fracture or dislocation. IMPRESSION: Right inferior perirectal abscess measures 4.3 cm in greatest diameter. No significant extension into the ischioanal fossa or deep perineal pouch. This document has been electronically signed by: Maria Teresa Velasco DO on 04/11/2025 16:39:52 Dictated By: Maria Teresa Velasco MD Signed By: <Electronically signed by Maria Teresa Velasco MD in OV> 04/11/25 1640 DD/ 1639 TD/TT: 04/11/25 1639 [employer] Detailer: Procedure Note Donotuseinterpreter, Image - 04/11/[address] [address] [address] Scan Report Signed Patient: Tc Griffith JMR# : [id number] : 1985Acct:[id number] Age/Sex: 39 / MADM Date: 04/11/25 Loc: HO.ED Attending Dr: Ordering Physician: Nora Gtz Date of Service: 04/11/25 Procedure(s): CT pelvis w IV con Accession Number(s): [id number] cc: Marysol Patterson MD; Nora Gtz Report Number: [id number]: Total DLP = 275.00 mGy-cm CLINICAL HISTORY: perirectal abscess induration r o deeper tracking CT PELVIS WITH CONTRAST Comparison: None Findings: There is a wall enhancing thick-walled fluid collection in the right posterior perianal region with intergluteal extension. Suspected abscess measures 4.3 x 4.1 x 2.6 cm (Length x Height x Width). There is adjacent fat stranding and skin thickening. No deep or superficial gas locule. No foreign body. No pelvic free fluid or mesenteric edema. Multiple small reactive inguinal lymph nodes, right greater than left. No acute fracture or dislocation. IMPRESSION: Right inferior perirectal abscess measures 4.3 cm in greatest diameter. No significant extension into the ischioanal fossa or deep perineal pouch. This document has been electronically signed by: Maria Teresa Velasco DO on 04/11/2025 16:39:52 Dictated By: Maria Teresa Velasco MD Signed By: <Electronically signed by Maria Teresa Velasco MD in OV> 04/11/25 1640 DD/ 1639 TD/TT: 04/11/25 1639 [employer] Photographs Detailer: [facility] External Provider IMG CT PROCEDURES Edited Result - Final * Gram stain (04/11/2025 3:33 PM EDT) 04/11/2025 3:33 PM EDT 04/11/2025 3:37 PM EDT Comment:Abs Rectal Narrative [facility] - 04/13/2025 10:50 AM EDT Gram stain results: 1+ polys 2+ epithelial cells 3+ Gram-positive cocci 2+ Gram-negative rods 1+ Gram-positive rods Routine Culture Report - external Routine Culture 4+ Mixed juancarlos Strep agalactiae (Grp B) Quant Org ID 2+ Susc N/A Susceptibility not routinely performed on this isolate. Specimen Source: Abscess Rectal Generic External Data Provider LAB MICROBIOLOGY - GENERAL ORDERABLES Final Result Performing Organization Address [facility] Co de Phone Number [facility] [address] [place] [phone] * Lactic Acid (04/11/2025 3:33 PM EDT) Lactic Acid 1.8 0.5 - 2.0 mmol/L [facility] 04/11/2025 3:33 PM EDT 04/11/2025 3:37 PM EDT Generic External Data Provider LAB BLOOD ORDERAB LES Final Result Performing Organization Address [facility] de Phone Number [facility] [address] [place] [phone] * Blood Culture (First) (04/11/2025 2:49 PM EDT) Blood Venous blood specimen / Unknown 04/11/2025 2:49 PM EDT 04/11/2025 2:57 PM EDT Comment:Blood Narrative [facility] - 04/16/2025 4:57 PM EDT Blood Culture (First) No growth after 5 days. Specimen Source: Blood Generic External Data Provider LAB MICROBIOLOGY - GENERAL ORDERABLES Final Result Performing Organization Address [facility] Co de Phone Number [facility] [address] [place] [phone] * Blood Culture (Second) (04/11/2025 2:49 PM EDT) Blood Venous blood specimen / Unknown 04/11/2025 2:49 PM EDT 04/11/2025 2:57 PM EDT Comment:Blood Narrative [facility] - 04/16/2025 4:57 PM EDT Blood Culture (Second) No growth after 5 days. Specimen Source: Blood us Generic External Data Provider LAB MICROBIOLOGY - GENERAL ORDERABLES Final Result [facility] [address] [place] [phone] * (ABNORMAL) CBC auto differential (04/11/2025 2:49 PM EDT) White Blood Count 11.2(H) 4.8 - 10.8 X10*3/uL [facility] Red Blood Count 4.17(L) 4.60 - 5.80 X10*6/uL [facility] Hemoglobin 13.2(L) 14.0 - 18.0 g/dl [facility] Hematocrit 38.6(L) 42.0 - 52.0 % [facility] Mean Corpuscular Volume 92.6 80.0 - 98.0 fL [facility] Mean Corpuscular Hemoglobin 31.7 27.0 - 33.0 pg [facility] Mean Corpuscular HGB Conc 34.2 31.0 - 36.0 g/dl [facility] Red Cell Distribution Width 12.8 11.0 - 16.0 % [facility] Platelet Count 298 160 - 400 X10*3/uL [facility] Mean Platelet Volume 10.5 9.4 - 12.4 fL [facility] Neutrophils Percent Auto 76.2(H) 45 - 73 % [facility] Imm Gran Pct Auto 0.4 0.0 - 0.4 % [facility] Lymphocytes Percent Auto 14.9(L) 20 - 40 % [facility] Monocytes Percent Auto 6.1 2 - 11 % [facility] Eosinophils Percent Auto 2.0 0 - 4 % [facility] Basophils Percent Auto 0.4 0 - 2 % [facility] NRBC Pct Auto 0.0 0.0 - 0.2 /100WBC [facility] Neutrophils Absolute Auto 8.5(H) 2.0 - 8.3 x10*3/uL [facility] Imm Gran Abs Auto 0.05(H) 0.00 - 0.03 X10*3/uL [facility] Lymphocytes Absolute Auto 1.7 1.2 - 4.9 X10*3/uL [facility] Monocytes Absolute Auto 0.7 0.1 - 1.2 X10*3/uL [facility] Eosinophils Absolute Auto 0.2 0.0 - 0.4 X10*3/uL [facility] Basophils Absolute Auto 0.1 0.0 - 0.2 X10*3/uL [facility] NRBC Abs Auto 0.000 0.0 - 0.012 X10*3/uL [facility] 04/11/2025 2:49 PM EDT 04/11/2025 2:57 PM EDT us Generic External Data Provider LAB BLOOD ORDERAB LES Final Result Performing Organization Address [facility] Co de Phone Number [facility] [address] [place] [phone] * (ABNORMAL) Sed Rate by Modified Anne (04/11/2025 2:49 PM EDT) Erythrocyte Sedimentation Rate 62(H) 0 - 15 MM/HR [facility] Comment:Patients with polycy themia and many hemoglobin abnormalitiesmay have depressed sed rates whereas patients with anemiamay have elevated sed rates. 04/11/2025 2:49 PM EDT 04/11/2025 2:57 PM EDT us Generic External Data Provider LAB BLOOD ORDERAB LES Final Result Performing Organization Address [facility]/ZIP Co de Phone Number [facility] [address] [place] [phone] * Prothrombin Time-INR (04/11/2025 2:49 PM EDT) [facility] Prothrombin Time 11.0 10.9 - 12.4 SEC [facility] INTERNATIONAL NORM RATIO 1.0 0.9 - 1.1 [facility] Comment:INTERNATIONAL NORMAL IZED RATIO (INR) REFERENCE RANGES Reference RangeFor patients not on anticoagulant therapy: 0.9 - 1.1INR ranges for oral anticoagulanttherapy:For prevention and treatment of venous thrombosis and pulmonary embolism: 2.0 - 3.0For acute myocardial infarction with aspirin therapy: 2.0 - 3.0For acute myocardial infarction without aspirin therapy: 3.0 - 4.0For patients with mechanical prosthetic heart valves: 2.5 - 3.5 04/11/2025 2:49 PM EDT 04/11/2025 2:57 PM EDT Generic External Data Provider LAB BLOOD ORDERAB LES Final Result Performing Organization Address [facility] de Phone Number [facility] [address] [place] [phone] * (ABNORMAL) C-reactive Protein (04/11/2025 2:49 PM EDT) [facility] C Reactive Protein 6.80(H) < or = 0.50 mg/dL [facility] 04/11/2025 2:49 PM EDT 04/11/2025 2:57 PM EDT Generic External Data Provider LAB BLOOD ORDERAB LES Final Result Performing Organization Address [facility] Co de Phone Number [facility] [address] [place] [phone] * Magnesium (04/11/2025 2:49 PM EDT) [facility] Magnesium 1.9 1.6 - 2.6 mg/dL [facility] 04/11/2025 2:49 PM EDT 04/11/2025 2:57 PM EDT us Generic External Data Provider LAB BLOOD ORDERAB LES Final Result Performing Organization Address [facility]/ZIP Co de Phone Number [facility] [address] [place] [phone] * Hepatic Function Panel (04/11/2025 2:49 PM EDT) Bilirubin, Total 0.2 0.0 - 1.0 mg/dL [facility] Bilirubin, Direct <0.2 0.0 - 0.5 mg/dL [facility] Aspartate Amino Transferase 16 5 - 37 U/L [facility] Alanine Aminotransferase 10 0 - 40 U/L [facility] Total Protein 7.6 6.5 - 8.0 g/dL [facility] Albumin Level 4.3 3.5 - 5.0 g/dL [facility] Alkaline Phosphatase 71 39 - 117 U/L [facility] 04/11/2025 2:49 PM EDT 04/11/2025 2:57 PM EDT Generic External Data Provider LAB BLOOD ORDERAB LES Final Result Performing Organization Address [facility] de Phone Number [facility] [address] [place] [phone] * Basic Metabolic Panel (04/11/2025 2:49 PM EDT) Pathologist [facility] Sodium 141 135 - 145 mmol/L [facility] Potassium 4.5 3.3 - 5.1 mmol/L [facility] Chloride 102 96 - 108 mmol/L [facility] Carbon Dioxide 28 22 - 29 mmol/L [facility] Anion Gap 16 12 - 20 [facility] Urea Nitrogen (BUN) 10 9 - 16 mg/dL [facility] Creatinine, Serum 0.67 0.5 - 1.4 mg/dL [facility] Creatinine Clr Calc Pharmacy 119.1 [facility] Comment:eGFR (calculated fro m the MDRD study equation) and eCrCl(calculated from the Cockcroft-Gault equation) are based ondifferent parameters and may not yield comparable results.If eCrCl result is absurd, please check patient'sheight/weight. Estimated Glomerular Filt Rate >60 [facility] Comment:Chronic Kidney Disea se: Estimated GFR < 60 mL/min/1.15x3Pvssas Kidney Disease: Estimated GFR < 15 mL/min/1.73m2 Glucose 113 60 - 115 mg/dL [facility] Calcium 9.6 8.4 - 10.2 mg/dL [facility] 04/11/2025 2:49 PM EDT 04/11/2025 2:57 PM EDT us Generic External Data Provider LAB BLOOD ORDERAB LES Final Result Performing Organization Address [facility] Co de Phone Number [facility] [address] [place] [phone] * Hepatitis C Antibody with Reflex to HCV, RNA, Quantitative, Real-Time PCR (11/26/2023 8:03 AM EST) Hepatitis C Antibody Nonreactive Nonreactive [facility] Comment:Antibodies to HCV no t detected; does not exclude early acuteHCV infection. Blood Venous blood specimen / Unknown 11/26/2023 8:03 AM EST 11/26/2023 11:12 AM EST us Marysol Michelle MD LAB BLOOD ORDERABLES Final Result Performing Organization Address [facility]/ZIP Co de Phone Number [facility] [address] [place] [phone] * HIV-1/2 Antigen and Antibodies, Fourth Generation, with Reflexes (11/26/2023 8:03 AM EST) HIV AB/AG Nonreactive Nonreactive [facility] Comment:HIV-1 p24 Ag and/or HIV-1/HIV-2 Ab not detected.A test result that is nonreactive does not exclude thepossibility of exposure to or infection with HIV-1 and/orHIV-2. Nonreactive results in this assay for individualswith prior exposure to HIV-1 and/or HIV-2 may be due toantigen and antibody levels that are below the limit ofdetection of this assay.The [employer] HIV Ag/Ab Combo assay result andsupplemental assay results should be interpreted inconjunction with the patient's clinical presentation,history and other laboratory results. If the results areinconsistent with clinical evidence, additional testing issuggested to confirm the result. Blood Venous blood specimen / Unknown 11/26/2023 8:03 AM EST 11/26/2023 11:12 AM EST us Marysol Michelle MD LAB BLOOD ORDERABLES Final Result [facility] [address] [place] [phone] * (ABNORMAL) Lipid Panel, Standard (11/26/2023 8:03 AM EST) Triglycerides 88 <150 mg/dL [facility] Comment:Desirable Triglyceri de: less than 150 mg/dLBorderline High Triglyceride 150-199 mg/dLHigh Triglyceride: 200-499 mg/dLVery High Triglyceride: greater than or equal to 5OO mg/dL Cholesterol 151 <200 mg/dL [facility] Comment:Desirable Cholestero l: less than 200 mg/dLBorderline High Cholesterol: 200-239 mg/dLHigh Cholesterol: greater than 239 mg/dL LDL Cholesterol Calculated 94 <100 mg/dL [facility] Comment:Desirable LDL: less than 100 mg/dLNear Optimal/Above Optimal LDL: 110- 129 mg/dLBorderline High LDL: 130-159 mg/dLHigh LDL: 160-189 mg/dLVery High LDL: greater than or equal to 190 mg/dL HDL Cholesterol 40(L) >40 mg/dL [facility] Comment:Desirable HDL: great er than 40 mg/dL Note: This HDL assay may give artificially low results in patients with liver disease. Blood Venous blood specimen / Unknown 11/26/2023 8:03 AM EST 11/26/2023 11:12 AM EST Marysol Michelle MD LAB BLOOD ORDERABLES Final Result [facility] [address] [place] [phone] from Last 3 Months or Most Recently Relevant to Health Maintenance Insurance MEDICARE [facility] Care Teams Access Specialist Relationship Specialty Start Date End Date Marysol Patterson MD [address] [place] [phone] PCP - General Family Medicine 08/07/18
== END 2025-05-11 14:51 | disposition home or self-care (01) ==
LOC: HO.HGS 14:37
PROVIDERS: PCP Internal Medicine; Visit Provider Surgery
DX: K61.1 Rectal abscess (principal)

== ENCOUNTER → 2025-05-11 14:36 | Outpatient (BNVA) | payer MEDICAID, SELFPAY | PROVIDERS: PCP Internal Medicine; Visit Provider Surgery | DX: K61.1 Rectal abscess (principal) | CPT/HCPCS: 99211 ==